=== PATIENT | female | born 1950 | race Caucasian/White ===

== ENCOUNTER → 2017-12-07 | Outpatient (CLI) | payer MEDICARE ==
--- NOTE | 2017-12-07 11:37 | KCIC ---
MR of the left knee Indication: Left knee pain. Previous lateral meniscal repair years ago. Left knee injury, bowling, 2 months ago. Pain is medial. Technique: The standard multiplanar sequences are obtained. FINDINGS: Artifact: No significant image degradation. Medial meniscus:Intact. Lateral meniscus: Mild blunting of the free margin of the lateral meniscus on a single coronal slice, compatible with a possible tear. Anterior cruciate ligament: Intact Posterior cruciate ligament: Intact Medial collateral ligament: Intact. Lateral structures: * Iliotibial band: Intact. * Lateral collateral ligament: Intact. * Biceps femoris tendon: Intact * Popliteus tendon attachment: Intact Extensive mechanism: * Patellar tendon: Intact * Quadriceps tendon: Intact * Retinacular structures: Intact Fluid: Trace joint effusion. No significant Tellez's cyst. Intra-articular bodies: None visualized Joint compartments * patellofemoral joint: Moderate chondromalacia * medial compartment: Chondromalacia, moderate to severe at the posterior weightbearing medial femoral condyle with minimal subchondral cystic change. * lateral compartment: Mildly degenerative Bones: No significant lesion or acute fracture. Soft tissue: Unremarkable Impression: 1. Mild single slice blunting of body of lateral meniscus, therefore compatible with a possible tear. If a tear, it is small. 2. Primary osteoarthritis. Electronically signed by: Adriel Schmidt MD (12/07/2017 11:34 AM) [facility]
== END | disposition home or self-care (01) ==
LOC: KCIC MRI 08:12
PROVIDERS: ATTEND Orthopaedic Surgery
DX: M17.12 Unilateral primary osteoarthritis, left knee (principal)
CPT/HCPCS: 73721

== ENCOUNTER → 2018-01-17 | Outpatient (CLI) | payer MEDICARE ==
[~2018-01-17] MED LIST: CLON0.5T11 PO; LEVO50TA PO; MULT1TAB52 PO; PNV1TABL25 PO
[2018-01-17 09:05] LABS: BASO % 1 % (0-3); EOS # 0.2 x10^3/uL (0.0-0.7); EOS % 3 % (0-3); HEMATOCRIT 43.7 % (36.0-47.0); HEMOGLOBIN 14.7 g/dL (12.0-15.5); LYMPH # 1.9 x10^3/uL (1.0-4.8); LYMPH % 39 % (24-48); MEAN CORPUSCULAR HEMOGLOBIN 29 pg (25-35); MEAN CORPUSCULAR HGB CONC 34 g/dL (31-37); MEAN CORPUSCULAR VOLUME 87 fL (79-100); MONO # 0.5 x10^3/uL (0.0-1.1); MONO % 10 % (0-9); NEUT # 2.3 x10^3uL (1.8-7.7); NEUT % 47 % (31-73); PLATELET COUNT 235 x10^3/uL (140-400); RED BLOOD COUNT 5.04 x10^6/uL (3.50-5.40); RED CELL DISTRIBUTION WIDTH 13.4 % (11.5-14.5); WHITE BLOOD COUNT 4.9 x10^3/uL (4.0-11.0)
[2018-01-17 09:11] LABS: ALBUMIN 4.1 g/dL (3.4-5.0); CALCIUM 9.6 mg/dL (8.5-10.1); CREATININE 0.9 mg/dL (0.6-1.0); GFR 62.8; POTASSIUM 3.3 mmol/L (3.5-5.1)
[2018-01-17 09:36] LABS: BILIRUBIN,URINE NEGATIVE (NEG); CLARITY,URINE CLEAR; COLOR,URINE YELLOW; NITRITE,URINE NEGATIVE (NEG); PH,URINE 5.5; PROTEIN,URINE NEGATIVE (NEG-TRACE); UROBILINOGEN,URINE 0.2 mg/dL (0.2 mg/dL)
[2018-01-17 10:02] LABS: SQUAMOUS EPITHELIAL CELL,UR FEW /LPF
[2018-01-17 10:03] LABS: BACTERIA,URINE MODERATE /HPF (0-FEW); RBC,URINE 0 /HPF (0-2)
--- NOTE | 2018-01-17 12:36 | EKG ---
[facility] [address] [place] [address] Test Date: 2018-01-17 Test Time: 12:28:55 Pat Name: GRACIE THORNTON Department: Room: Gender: F Epic Interface Analyst: : 1950 Requested By: KIKO JAMES Order Number: [id number] Reading MD: Adam Pickard MD Measurements Intervals [place] Rate: 72 P: 26 ID: 150 QRS: 20 QRSD: 86 T: 9 QT: 422 QTc: 469 Interpretive Statements SINUS RHYTHM NON-SPECIFIC ST/T CHANGES Electronically Signed On 01-17-2018 14:10:29 CDT by Adam Pickard MD
--- NOTE | 2018-01-17 15:15 | RAD ---
EXAM: Chest, 2 views. HISTORY: Knee arthroplasty. Hypertension. COMPARISON: None. FINDINGS: 2 views of the chest are obtained. There is no fracture, dislocation or subluxation. The heart is normal in size. IMPRESSION: No acute pulmonary finding. Electronically signed by: Ching Moss MD (01/17/2018 3:12 PM) [facility]
== END | disposition home or self-care (01) ==
LOC: SURGPAT 12:41
PROVIDERS: ATTEND Orthopaedic Surgery
DX: Z01.818 Encounter for other preprocedural examination (principal); I10 Essential (primary) hypertension; M17.12 Unilateral primary osteoarthritis, left knee
CPT/HCPCS: 36415; 71046; 80048; 81001; 82040; 82306; 85025; 85610; 85651; 85730; 87086; 87641; 93005

== ENCOUNTER 2018-02-08 06:21 | Inpatient (IN) | payer MEDICARE ==
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
[~2018-02-08] VITALS: Ht 168.9 cm; Wt 87.5 kg
[2018-02-08] VITALS (7 sets, daily range): BP systolic 126–180; BP diastolic 71–90
[~2018-02-08 06:21] MED LIST changes: +ACETAMINOPHEN 500 MG TABLET PO PRN; +KETOROLAC 30MG VIAL 30 MG, ROPIVacaine 0.5% PF 60 ML, EPINEPHrine 0.5 MG in IV NORMAL S... INT ART ONE; +TRANEXAMIC ACID 1,000 MG in IV NS 50ML -- 1ST BAG INJ ONE
[2018-02-08] MEDS ORDERED: PROCHLORPERAZINE 10 MG/2 ML VIAL. IV PRN ×2 (07:00→14:00)
[2018-02-08] MEDS ORDERED: IV RINGERS,LACTATED 1000ML 1,000 ML IV SCH (07:00)
[2018-02-08] MEDS ORDERED: ONDANSETRON PF 4 MG/2 ML VIAL. IV PRN (07:00)
[2018-02-08] MEDS ORDERED: LIDOCAINE 1% PF 2 ML VIAL. ID PRN (07:00)
[2018-02-08] MEDS ORDERED: fentaNYL PF VIAL 100 MCG/2 ML VIAL IV PRN ×3 (07:00→14:00)
[2018-02-08] MEDS ORDERED: TRANEXAMIC ACID 1,000 MG in IV NS 50ML -- 2ND BAG INJ ONE (08:00)
[2018-02-08] MEDS ORDERED: VANCOMYCIN 1 GM VIAL. ONE (09:27)
[2018-02-08] MEDS ORDERED: TOBRAMYCIN POWDER 1.2 GM VIAL. ONE (09:27)
[2018-02-08] MEDS ORDERED: MIDAZOLAM HCL/PF 2 MG/2 ML VIAL. ONE (10:34)
[2018-02-08] MEDS ORDERED: PHENYLEPHRINE in 0.9% NACL PF 1 MG/10 ML SYRINGE. IV ONE (10:35)
[2018-02-08] MEDS ORDERED: SEVOFLURANE > 120 MINUTES. IH ONE (10:35)
[2018-02-08] MEDS ORDERED: fentaNYL PF VIAL 250 MCG/5 ML VIAL ONE (10:35)
[2018-02-08] MEDS ORDERED: DEXAMETHASONE SOD PHOS 20 MG/5 ML VIAL. ONE (10:35)
[2018-02-08] MEDS ORDERED: PROPOFOL 20 ML IV ONE (10:35)
[2018-02-08] MEDS ORDERED: ONDANSETRON PF 4 MG/2 ML VIAL. ONE (10:35)
[2018-02-08] MEDS ORDERED: ROCURONIUM 50 MG/5 ML VIAL. ONE (11:22)
[2018-02-08] MEDS ORDERED: EPINEPHRINE INT ART ONE (12:00)
[2018-02-08] MEDS ORDERED: NORMAL SALINE INT ART ONE (12:00)
[2018-02-08] MEDS ORDERED: ROPIVACAINE 0.5% INT ART ONE (12:00)
--- NOTE | 2018-02-08 13:51 | PDOC4 ---
Operative Note Operative Note Date of Procedure: February 08, 2018 Pre-Op Diagnosis: Osteoarthritis left knee Post-Op Diagnosis: Osteoarthritis left knee Procedure: left total knee arthroplasty Surgeon: Kiko Muñoz MD Head Porter Baggage: Helen Ambrosio PA-C Anesthesia: General EBL: 125 mL Specimens Obtained: left knee bone and soft tissue Complications: none Implant Company: [employer] Drains: hemovac plus pain catheter Tourniquet time: 53 Minutes Tourniquet Pressure: 350 mm Hg Indications for Procedure: Arthritis pain unrelieved by nonoperative management Findings: Severe osteoarthritis with full thickness cartilage loss in all three compartments, especially at the trochlea. The lateral femoral condyle was deficient in shape and size, with high grade cartilage loss, and there was a discoid lateral meniscus. A lateral patellar retinacular release was required, but no medial or lateral releases required. Implants used: Size 3 left bicruciate stabilized Journey II BCS Oxinium femoral component, size 3 left Journey nonporous tibial baseplate, size 3-4 10 mm left Journey II BCS XLPE articular insert, 32 mm oval Matilda II resurfacing patellar component Procedure in Detail: The patient was identified in the preoperative holding area, and the correct left lower extremity was marked by me. The patient was taken to the operating room where the patient was anesthetized by the Department of Anesthesia. Preoperative antibiotics were given intravenously. Tranexamic acid 1 g was given intravenously for intraoperative hemostasis. A "time-out" procedure was performed. The patient was positioned supine on the operative table with a tourniquet on the upper left thigh. The left lower limb was thoroughly scrubbed , then sterile surgical prep solution was applied, and the limb was draped in sterile fashion. An impervious stockinet and adhesive drape were used such that the skin was entirely covered. An Monreal leg doe was used. The operating team wore personal exhaust-ventilated hoods. The limb exsanguinated with an Esmarch bandage, and the tourniquet was inflated. A midline skin incision was made with a scalpel using the patella and tibial tubercle as landmarks. Electrocautery was used for hemostasis. My social worker assistant used rake retractors. A medial parapatellar arthrotomy incision was used with extension into the distal quadriceps tendon. The patella was retracted laterally and Hohmann retractors were now used by my social worker assistant. Excess synovium, the menisci, and the cruciate ligaments were resected sharply. The patella was assessed and excess synovium and osteophytes around the patellar articulation were removed. The patella was measured with a caliper, cut freehand with a saw using caliper measurements, sized, and then drilled for an oval three-pegged patella component. Periarticular anesthetic injection was used in the suprapatellar pouch and distal quadriceps muscle. Whitesides's line and the transepicondylar axis were marked on the femur. An intra-medullary 5 degree cutting guide was pinned to the femur, and a distal femoral cut was made with an oscillating saw. An additional 2 mm resection was used due to the deep femoral sulcus, and deficient condyle. My social worker assistant held Hohmann retractors and an [place] retractor to protect the medial and lateral collateral ligaments, the patellar tendon, the skin and the other soft tissues. A posterior referencing guide was applied with external rotation of 4 to match Whitesides line. A 5-in-1 Journey II cutting guide was then applied and pinned to the femur. The posterior, anterior, and all chamfer cuts were made with the oscillating saw. An extramedullary guide was pinned to the tibia and rotational alignment and the planned resection thickness assessed. An external alignment rahat was used to verify the planned cut in the varus-valgus plane and regarding posterior slope referencing the tibial tubercle, the tibial shaft, the ankle joint, and the second metatarsal. The upper tibia was cut made with an oscillating saw. My social worker assistant held Hohmann retractors and a posterior cruciate ligament retractor to protect the medial and lateral collateral ligaments, the patellar tendon, the skin, the peroneal nerve and the other soft tissues. The upper tibia was sized with a trial baseplate. The posterior compartment was cleared of osteophytes and loose bodies. Periarticular anesthetic injection was used in the posterior compartment. The box cut for a posterior stabilized component was made. A preliminary reduction was performed with a trial femur, trial tibial baseplate and trial polyethylene. Soft-tissue balancing was now performed, and extension and rotation of the alignments was checked using a guide rahat in the tibial trial and a guide pin in the femur. No additional releases were required. The stability was assessed using different thicknesses of tibial articular surface to find satisfactory stability and good range of motion. The rotation of the tibial component was marked on the upper tibia. Final trial reduction was now performed verifying patella tracking and tibiofemoral stability and alignment. A lateral patellar retinacular release was used for improved patella tracking. The tibia preparation was completed with a drill, saw, and fin punch at the previously noted rotation. The final implants were verified and opened. Outer gloves were changed by the operating team. The bone cuts were washed thoroughly with the GoGuide InterPulse device and dried. I asked Ms. Ambrosio to leave the room while the cement was mixed. Two packages of Moon + Nephew Rally MV bone cement were mixed in powdered form with Vancomycin 1gm and Tobramycin 1.2 gm, and then vacuum-mixed with the monomer, and placed into a cement gun. The cut surfaces of the bone were thoroughly dried with Mackenzie-tip suction and with laparotomy sponges for cement interdigitation. The final components were cemented into place. The knee was kept at full extension while the cement hardened, and excess cement was removed. Tranexamic acid 1 g was redosed intravenously for additional intraoperative hemostasis. Ms. Ambrosio scrubbed, hooded, gowned, gloved, and returned to the case. The tourniquet was released, and electrocautery was used for hemostasis. A final periarticular anesthetic injection was used for pain relief. A final check of [id number] and stability was made, and the polyethylene implant final size was chosen. The polyethylene implant was secured to the tibial baseplate, and the knee was reduced a final time and range of motion and stability was confirmed. Thorough irrigation was used. Hemovac and pain catheter were used.The arthrotomy was closed with interrupted [id number] # 1 PDS suture. The arthrotomy incision was then run with #1 STRATAFIX Symmetric PDS Plus Knotless suture. The subcutaneous tissues were closed with #2-0 Vicryl by my social worker assistant. The skin was approximated with iris by my social worker assistant. The skin incision was then covered and reinforced with RONNI single use negative pressure wound therapy dressing Needle and sponge counts were correct. There were no apparent complications. The patient returned to the recovery room in stable condition. KIKO MUÑOZ MD Feb 08, 2018 13:51
[2018-02-08] MEDS ORDERED: 0.9 % SODIUM CHLORIDE 10 ML DISP.SYRIN. IV PRN (14:00)
[2018-02-08] MEDS ORDERED: diphenhydrAMINE HCL 25 MG CAPSULE PO PRN (14:00)
[2018-02-08] MEDS ORDERED: MORPHINE SULFATE 2 MG/ML VIAL. IV PRN (14:00)
[2018-02-08] MEDS ORDERED: MORPHINE SULFATE 10 MG/ML VIAL. IV PRN (14:00)
[2018-02-08] MEDS ORDERED: PROCHLORPERAZINE 5 MG TABLET. PO PRN (14:00)
[2018-02-08] MEDS ORDERED: METOCLOPRAMIDE HCL 10 MG/2 ML VIAL. IV PRN (14:00)
[2018-02-08] MEDS ORDERED: ZOLPIDEM 5 MG TABLET. PO PRN (14:00)
[2018-02-08] MEDS ORDERED: CALCIUM CARBONATE 500 MG TAB.CHEW PO PRN (14:00)
[2018-02-08] MEDS ORDERED: ACETAMINOPHEN 325 MG TABLET. PO PRN (14:00)
[2018-02-08] MEDS ORDERED: HYDROmorphone 2 MG TABLET PO PRN (14:00)
[2018-02-08] MEDS ORDERED: MORPHINE SULFATE 4 MG/ML VIAL. IV PRN ×2 (14:00)
[2018-02-08] MEDS ORDERED: DEXTROSE 50% 25 GM / 50ML DISP.SYRIN. IV PRN (14:00)
[2018-02-08] MEDS ORDERED: fentaNYL PF VIAL 100 MCG/2 ML VIAL ONE (14:18)
[2018-02-08] MEDS: fentaNYL PF VIAL 100 MCG/2 ML VIAL IV PRN ×2 (14:23→15:44)
--- NOTE | 2018-02-08 15:05 | RAD ---
History: Postoperative left total knee arthroplasty. Comparison: None. Findings: AP and lateral views of left knee. Left total knee arthroplasty is present. Relationship of the tibial femoral components appears anatomic. Presence of soft tissue gas, surgical drain, and surgical skin iris is compatible with recent postoperative status. Impression: Postoperative changes of left total knee arthroplasty. Electronically signed by: Adriel Marcelino MD (02/08/2018 3:02 PM) [facility]
[2018-02-08] MEDS: IV DEXTROSE 5 %-0.45 % NACL 1,000 ML IV SCH (16:06)
[2018-02-08] MEDS: FERROUS SULFATE 325 MG TABLET. PO SCH (17:18)
[2018-02-08] MEDS: traMADol 50 MG TABLET PO PRN ×2 (17:20→23:26)
[2018-02-08] MEDS: clonazePAM 0.5 MG TABLET PO SCH (20:48)
[2018-02-08] MEDS: ASPIRIN ENTERIC COATED 325 MG TABLET.DR. PO SCH (20:48)
[2018-02-09] MEDS: IV DEXTROSE 5 %-0.45 % NACL 1,000 ML IV SCH ×2 (02:00→11:03)
[2018-02-09 03:30] VITALS: BP 146/74
[2018-02-09 04:48] LABS: HEMATOCRIT 39.1 % (36.0-47.0); HEMOGLOBIN 13.3 g/dL (12.0-15.5)
[2018-02-09] MEDS ORDERED: MAGNESIUM HYDROXIDE 2,400 MG/30 ML ORAL.SUSP. PO PRN (06:00)
[2018-02-09] MEDS: LEVOTHYROXINE 50 MCG TABLET PO SCH (06:23)
[2018-02-09 06:30] VITALS: BP 131/71
[2018-02-09] MEDS: clonazePAM 0.5 MG TABLET PO SCH (07:44)
[2018-02-09] MEDS: traMADol 50 MG TABLET PO PRN ×3 (07:44→22:29)
[2018-02-09] MEDS: FERROUS SULFATE 325 MG TABLET. PO SCH ×2 (07:45→17:01)
[2018-02-09] MEDS: SENNOSIDES/DOCUSATE 8.6/50MG TABLET. PO SCH (07:45)
[2018-02-09] MEDS: MULTIVITAMIN with MINERAL TABLET. PO SCH (07:45)
[2018-02-09] MEDS: ASPIRIN ENTERIC COATED 325 MG TABLET.DR. PO SCH ×2 (07:45→20:33)
--- NOTE | 2018-02-09 09:20 | PDOC ---
PROGRESS NOTES Subjective Subjective Doing well. Pain controlled. Objective Vital Signs Vital Signs Date Time Temp Pulse Resp B/P (MAP) Pulse Ox O2 Delivery O2 Flow Rate FiO2 02/09/18 07:44 Room Air 02/09/18 06:30 98.2 66 18 131/71 (91) 18 98.2 02/08/18 23:00 2.0 Physical Exam Postop dressing dry and intact. Hemovac and pain catheter in place. Thigh and calf soft and nontender with negative Homans sign. Good AROM toes, foot, and ankle, with no sign of neurovascular injury nor compartment syndrome. Labs Laboratory Tests Test 02/09/18 03:50 Hemoglobin 13.3 g/dL (12.0-15.5) Hematocrit 39.1 % (36.0-47.0) Mean Corpuscular Hemoglobin Concent 34 g/dL (31-37) Laboratory Tests Test 02/09/18 03:50 Hemoglobin 13.3 g/dL (12.0-15.5) Hematocrit 39.1 % (36.0-47.0) Mean Corpuscular Hemoglobin Concent 34 g/dL (31-37) Imaging Postoperative knee x-rays report reviewed, images independently reviewed. Satisfactory TKA alignment with no apparent complications. Assessment Assessment POD #1 TKA Plan Plan of Care Continue POC including PT and DVT prophylaxis. KIERSTEN RENDON Feb 09, 2018 09:19
[2018-02-09] MEDS ORDERED: BISACODYL 10 MG SUPP.RECT. PR PRN (16:00)
[2018-02-09 18:28] VITALS: BP 138/66
[2018-02-09] MEDS ORDERED: clonazePAM 0.5 MG TABLET PO PRN (18:30)
[2018-02-10] MEDS: traMADol 50 MG TABLET PO PRN ×3 (02:01→17:45)
[2018-02-10 05:34] LABS: HEMATOCRIT 33.8 % (36.0-47.0); HEMOGLOBIN 11.5 g/dL (12.0-15.5)
[2018-02-10 06:00] VITALS: BP 116/61
[2018-02-10] MEDS: LEVOTHYROXINE 50 MCG TABLET PO SCH (06:01)
[2018-02-10] MEDS: ASPIRIN ENTERIC COATED 325 MG TABLET.DR. PO SCH ×2 (08:09→20:57)
[2018-02-10] MEDS: MULTIVITAMIN with MINERAL TABLET. PO SCH (08:10)
[2018-02-10] MEDS: SENNOSIDES/DOCUSATE 8.6/50MG TABLET. PO SCH (08:10)
[2018-02-10] MEDS: FERROUS SULFATE 325 MG TABLET. PO SCH ×2 (08:10→17:44)
--- NOTE | 2018-02-10 12:55 | PDOC ---
PROGRESS NOTES Subjective Subjective Pain controlled Objective Vital Signs Vital Signs Date Time Temp Pulse Resp B/P (MAP) Pulse Ox O2 Delivery O2 Flow Rate FiO2 02/10/18 09:10 Room Air 02/10/18 06:00 97.7 73 18 116/61 (79) 97 97.7 02/08/18 23:00 2.0 Physical Exam Knee Prevena dressing with spotty drainage only, and slight bleeding from hemovac site. Calf and thigh soft and NT. Good AROM toes, foot and ankle with negative Homans and no sign of neurovascular injury nor compartment syndrome. Pain catheter and hemovac have been removed. Not yet safely walking with walker Labs Laboratory Tests Test 02/09/18 03:50 02/10/18 04:45 Hemoglobin 13.3 g/dL (12.0-15.5) 11.5 g/dL (12.0-15.5) Hematocrit 39.1 % (36.0-47.0) 33.8 % (36.0-47.0) Mean Corpuscular Hemoglobin Concent 34 g/dL (31-37) 34 g/dL (31-37) Laboratory Tests Test 02/10/18 04:45 Hemoglobin 11.5 g/dL (12.0-15.5) Hematocrit 33.8 % (36.0-47.0) Mean Corpuscular Hemoglobin Concent 34 g/dL (31-37) Imaging Postoperative knee x-rays. Report reviewed, images independently reviewed. Satisfactory TKA alignment with no apparent complications. Assessment Assessment POD 2 after TKA Plan Plan of Care Continue PT and DVT prophylaxis. Discharge planning for tomorrow KIKO JAMES MD Feb 10, 2018 12:55
[2018-02-10 18:02] VITALS: BP 137/75
[2018-02-11 04:41] LABS: HEMOGLOBIN 10.8 g/dL (12.0-15.5)
[2018-02-11] MEDS: LEVOTHYROXINE 50 MCG TABLET PO SCH (05:40)
[2018-02-11 05:48] VITALS: BP 114/69
[2018-02-11] MEDS: traMADol 50 MG TABLET PO PRN (05:50)
--- NOTE | 2018-02-11 08:11 | PATHOLOGY ---
[facility] Accession Number: [id number] . 01 Material submitted: . LEFT KNEE BONE AND TISSUE . 01 Clinician provided ICD-10: M17.12 . 01 Clinical history: . Left knee osteoarthritis pain . 02 Diagnosis: Segments of bone and soft tissue, left total knee arthroplasty: - Degenerative arthritis. (JPM:sabas; 02/10/2018) QMS/02/10/2018 . 02 Electronically signed: . Scott Dinh MD, Pathologist NPI- [id number] . 01 Gross description: . The specimen is received in formalin, labeled "Partida, Gloria, left knee bone and tissue", multiple segments of alvarez bone and ross-white fibrous tissue consisting of recognizable portion of tibial plateau, patella and meniscus measuring 11.0 x 7.8 x 2.0 cm in aggregate. The articular cartilage is irregular and pitted. Peripheral osteophytes are present. County Attorney tissue is submitted in A1 after decalcification. ([facility]; 02/08/2018) SHS/SHS . 02 Pathologist provided ICD-10: M17.12 . 02 CPT . [id number], [id number] Specimen Comment: A courtesy copy of this report has been sent to Specimen Comment: [phone], . Specimen Comment: Report sent to / DR GELLER Specimen Comment: A duplicate report has been generated due to demographic updates. Performed at: 01 [facility] [address], [place] [id number] MD Orion Mccarthy MD Phone: [phone] Performed at: 02 [facility] [address] [place], [place] [id number] MD Scott Dinh MD Phone: [phone]
[2018-02-11] MEDS: FERROUS SULFATE 325 MG TABLET. PO SCH (09:05)
[2018-02-11] MEDS: SENNOSIDES/DOCUSATE 8.6/50MG TABLET. PO SCH (09:05)
[2018-02-11] MEDS: ASPIRIN ENTERIC COATED 325 MG TABLET.DR. PO SCH (09:05)
[2018-02-11] MEDS: MULTIVITAMIN with MINERAL TABLET. PO SCH (09:05)
--- NOTE | 2018-02-11 09:37 | PDOC ---
PROGRESS NOTES Subjective Subjective Doing well, pain controlled. Objective Vital Signs Vital Signs Date Time Temp Pulse Resp B/P (MAP) Pulse Ox O2 Delivery O2 Flow Rate FiO2 02/11/18 06:45 18 Room Air 02/11/18 05:50 98 02/11/18 05:48 98.2 82 114/69 (84) 98.2 02/08/18 23:00 2.0 Physical Exam RONNI dressing intact with spotty drainage only. Calf and thigh soft and NT. Good AROM toes, foot and ankle with negative Homans sign and no sign of neurovascular injury nor compartment syndrome. Labs Laboratory Tests Test 02/10/18 04:45 02/11/18 04:00 Hemoglobin 11.5 g/dL (12.0-15.5) 10.8 g/dL (12.0-15.5) Hematocrit 33.8 % (36.0-47.0) 31.0 % (36.0-47.0) Mean Corpuscular Hemoglobin Concent 34 g/dL (31-37) 35 g/dL (31-37) Laboratory Tests Test 02/11/18 04:00 Hemoglobin 10.8 g/dL (12.0-15.5) Hematocrit 31.0 % (36.0-47.0) Mean Corpuscular Hemoglobin Concent 35 g/dL (31-37) Assessment Assessment POD #3 TKA Plan Plan of Care Continue PT and DVT prophylaxis. Discharge this afternoon after therapy. KIERSTEN RENDON Feb 11, 2018 09:37
--- NOTE | 2018-02-11 09:45 | PDOC3 ---
Discharge Summary Visit Information Date of Admission: Feb 08, 2018 Date of Discharge: Feb 11, 2018 Admitting Diagnosis: left knee osteoarthritis pain Brief Hospital Course Allergies Allergies Coded Allergies Type Severity Reaction Last Updated Verified Sulfa (Sulfonamide Antibiotics) Allergy Severe Anaphylaxis 01/14/18 Yes shellfish derived Adverse Reaction Severe Anaphylaxis 01/14/18 Yes adhesive Adverse Reaction Intermediate Rash 01/14/18 Yes aspartame Adverse Reaction Intermediate 01/14/18 Yes hydrocodone Adverse Reaction Intermediate Rash 01/14/18 Yes kevin Adverse Reaction Intermediate Anaphylaxis 01/14/18 Yes oxycodone Adverse Reaction Intermediate Rash 01/14/18 Yes Vital Signs Vital Signs Date Time Temp Pulse Resp B/P (MAP) Pulse Ox O2 Delivery O2 Flow Rate FiO2 02/11/18 06:45 18 Room Air 02/11/18 05:50 98 02/11/18 05:48 98.2 82 114/69 (84) 98.2 Lab Results Laboratory Tests Test 02/10/18 04:45 02/11/18 04:00 Hemoglobin 11.5 g/dL (12.0-15.5) 10.8 g/dL (12.0-15.5) Hematocrit 33.8 % (36.0-47.0) 31.0 % (36.0-47.0) Mean Corpuscular Hemoglobin Concent 34 g/dL (31-37) 35 g/dL (31-37) Laboratory Tests Test 02/11/18 04:00 Hemoglobin 10.8 g/dL (12.0-15.5) Hematocrit 31.0 % (36.0-47.0) Mean Corpuscular Hemoglobin Concent 35 g/dL (31-37) Brief Hospital Course 67 year old who presented with knee osteoarthritis, for elective total knee arthroplasty. The patient underwent total knee arthroplasty under general anesthesia the day of admission. Perioperative antibiotics and DVT prophylaxis were used. Postoperatively physical therapy and case management were consulted. The patient progressed and is stable for discharge. Discharge Information Condition at Discharge: Stable Follow Up: Weeks (2) Disposition/Orders: D/C to Home Scheduled Clonazepam (Clonazepam), 0.5 MG PO BID, (Reported) Levothyroxine Sodium (Synthroid), 50 MCG PO DAILYAC, (Reported) Multivitamin (Multivitamins), 1 EACH PO DAILY, (Reported) Pnv Cmb#95/Ferrous Fumarate/Fa ( Tablet), 1 EACH PO DAILY, (Reported) Patient Instructions Patient Instructions Patient Instructions Continue to WBAT with walker. Keep dressing dry and intact. F/U with [facility] in 10-14 days. Call for appointment. Physical therapy for TKA Continue DVT prophylaxis with aspirin 325mg twice daily. KIERSTEN RENDON Feb 11, 2018 09:45
[2018-02-11] MEDS ORDERED: TRAM50TA PO ×2 (11:02→11:04)
[2018-02-11] MEDS ORDERED: FERR325T14 PO (11:05)
[2018-02-11 15:02] VITALS: BP 124/61
== END 2018-02-11 15:10 | disposition home health service (06) | DRG 470 ==
LOC: OPSVCIP 06:21 → 4 SOUTHEST 15:40
PROVIDERS: ADMIT Orthopaedic Surgery; ATTEND Orthopaedic Surgery
PROC: 0SRD069 Replacement of Left Knee Joint with Oxidized Zirconium on Polyethylene Synthetic Substitute, Cemented, Open Approach (ICD-10-PCS; principal; 2018-02-08 11:15)
DX: M17.12 Unilateral primary osteoarthritis, left knee (principal); E03.9 Hypothyroidism, unspecified; F43.10 Post-traumatic stress disorder, unspecified; Z87.442 Personal history of urinary calculi; Z90.710 Acquired absence of both cervix and uterus; Z90.3 Acquired absence of stomach [part of]; Z88.2 Allergy status to sulfonamides; Z88.8 Allergy status to other drugs, medicaments and biological substances; Z88.6 Allergy status to analgesic agent; Z91.013 Allergy to seafood; Z91.018 Allergy to other foods; Z79.899 Other long term (current) drug therapy; Z82.0 Family history of epilepsy and other diseases of the nervous system; Z82.3 Family history of stroke; Z83.3 Family history of diabetes mellitus
CPT/HCPCS: 36415; 73560; 85014; 85018; 86850; 86900; 86901; 88305; 88311; 90471; 90756; A7015; C1713; J0171; J0690; J1100; J1885; J2250; J2370; J2405; J2704; J2795; J3010; J3260; J3370; J3490; J7030; J7120; 97116; 97150; 97530; 97535; A4461; C1769; Q2035

== ENCOUNTER → 2018-05-09 | Outpatient (CLI) | payer MEDICARE ==
[~2018-05-09] MED LIST changes: -ACETAMINOPHEN 500 MG TABLET PO PRN; +CHOL2000 PO; +FERR325T14 PO; +HYDR25TA PO; -KETOROLAC 30MG VIAL 30 MG, ROPIVacaine 0.5% PF 60 ML, EPINEPHrine 0.5 MG in IV NORMAL S... INT ART ONE; +LOSA1TAB25 PO; +MELO7.5T29 PO; +TRAM50TA PO; -TRANEXAMIC ACID 1,000 MG in IV NS 50ML -- 1ST BAG INJ ONE
[2018-05-09 13:58] LABS: ALBUMIN 3.8 g/dL (3.4-5.0); CALCIUM 9.1 mg/dL (8.5-10.1); CREATININE 0.8 mg/dL (0.6-1.0); POTASSIUM 3.6 mmol/L (3.5-5.1)
[2018-05-09 13:59] LABS: BASO % 1 % (0-3); EOS # 0.1 x10^3/uL (0.0-0.7); EOS % 3 % (0-3); HEMATOCRIT 37.5 % (36.0-47.0); HEMOGLOBIN 12.8 g/dL (12.0-15.5); LYMPH # 1.3 x10^3/uL (1.0-4.8); LYMPH % 33 % (24-48); MEAN CORPUSCULAR HEMOGLOBIN 28 pg (25-35); MEAN CORPUSCULAR HGB CONC 34 g/dL (31-37); MEAN CORPUSCULAR VOLUME 83 fL (79-100); MONO # 0.3 x10^3/uL (0.0-1.1); MONO % 8 % (0-9); NEUT # 2.2 x10^3uL (1.8-7.7); NEUT % 55 % (31-73); PLATELET COUNT 209 x10^3/uL (140-400); RED BLOOD COUNT 4.51 x10^6/uL (3.50-5.40); RED CELL DISTRIBUTION WIDTH 13.9 % (11.5-14.5)
[2018-05-09 14:10] LABS: BILIRUBIN,URINE NEGATIVE (NEG); CLARITY,URINE CLEAR; COLOR,URINE AMBER; NITRITE,URINE NEGATIVE (NEG); PROTEIN,URINE NEGATIVE (NEG-TRACE); UROBILINOGEN,URINE 0.2 mg/dL (0.2 mg/dL)
[2018-05-09 14:21] LABS: SQUAMOUS EPITHELIAL CELL,UR MOD /LPF
[2018-05-09 14:22] LABS: BACTERIA,URINE FEW /HPF (0-FEW); RBC,URINE 0 /HPF (0-2)
[2018-05-09 14:23] LABS: AMORPHOUS SEDIMENT,UR PRESENT /HPF; WBC,URINE OCC /HPF (0-4)
[2018-05-09 14:24] LABS: HYALINE CASTS, URINE FEW /HPF
== END | disposition home or self-care (01) ==
LOC: SURGPAT 09:31
PROVIDERS: ATTEND Orthopaedic Surgery
DX: Z01.818 Encounter for other preprocedural examination (principal); M17.11 Unilateral primary osteoarthritis, right knee; E03.9 Hypothyroidism, unspecified; Z87.442 Personal history of urinary calculi; Z88.8 Allergy status to other drugs, medicaments and biological substances; Z79.899 Other long term (current) drug therapy; Z82.3 Family history of stroke; Z90.710 Acquired absence of both cervix and uterus; Z90.722 Acquired absence of ovaries, bilateral; Z82.0 Family history of epilepsy and other diseases of the nervous system; Z88.2 Allergy status to sulfonamides
CPT/HCPCS: 36415; 80048; 81001; 82040; 85025; 85610; 85651; 85730; 87086; 87641

== ENCOUNTER 2021-03-31 15:06 | Inpatient (IN) | payer MEDICARE ==
[~2021-03-31] VITALS: Ht 170.2 cm; Wt 69.6 kg
[~2021-03-31 15:06] MED LIST changes: +CLON-77 PO; -CLON0.5T11 PO; +MULT-445 PO; -MULT1TAB52 PO
[2021-03-31 17:13] LABS: BASO % 1 % (0-3); EOS # 0.2 x10^3/uL (0.0-0.7); EOS % 5 % (0-3); HEMATOCRIT 35.8 % (36.0-47.0); LYMPH # 0.9 x10^3/uL (1.0-4.8); LYMPH % 20 % (24-48); MEAN CORPUSCULAR HEMOGLOBIN 27 pg (25-35); MEAN CORPUSCULAR HGB CONC 34 g/dL (31-37); MEAN CORPUSCULAR VOLUME 81 fL (79-100); MONO # 0.4 x10^3/uL (0.0-1.1); MONO % 8 % (0-9); NEUT # 2.9 x10^3/uL (1.8-7.7); NEUT % 66 % (31-73); PLATELET COUNT 261 x10^3/uL (140-400); RED BLOOD COUNT 4.45 x10^6/uL (3.50-5.40); RED CELL DISTRIBUTION WIDTH 15.5 % (11.5-14.5); WHITE BLOOD COUNT 4.4 x10^3/uL (4.0-11.0)
[2021-03-31 17:23] LABS: PROTHROMBIN TIME PATIENT 18.7 SEC (11.7-14.0)
[2021-03-31 17:42] LABS: CALCIUM 11.9 mg/dL (8.5-10.1); CREATININE 3.3 mg/dL (0.6-1.0); GFR 13.9; POTASSIUM 4.2 mmol/L (3.5-5.1)
[2021-03-31 17:48] LABS: ALBUMIN 2.2 g/dL (3.4-5.0); ALBUMIN/GLOBULIN RATIO 0.6 (1.0-1.7); MAGNESIUM 2.1 mg/dL (1.8-2.4); TOTAL BILIRUBIN 0.5 mg/dL (0.2-1.0); TOTAL PROTEIN 5.7 g/dL (6.4-8.2)
--- NOTE | 2021-03-31 18:09 | PHYS DOC ---
Past Medical History Past Surgical History: Cholecystectomy, Knee Replacement (NAEEM GRAJEDA ELECTRIC SWITCH REPAIRER) Smoking Status: Never Smoker (NAEEM GRAJEDA ELECTRIC SWITCH REPAIRER) General Adult EDM: Chief Complaint: ABNORMAL LABS HPI: HPI: Patient is a 70 year old female presenting to the ED today to be evaluated for hypoxia and a mass in the lung. Patient states she has had cough and shortness of breath as well as upper back pain, symptoms have been going on since January. She states she has been seen by the PCP and they did a CT of her chest, CT was noted for 5.7 cm in the left upper lobe concerning for bronchogenic carcinoma. She was hypoxic at the doctor's office and had elevated creatinine and was sent to the Ed. Denies history of smoking. Patient also states that last night she fell hitting her head on the ground. Denies any loss of consciousness. She states she now has low back pain from the fall. (NAEEM GRAJEDA ELECTRIC SWITCH REPAIRER) Review of Systems: Review of Systems: Constitutional: Denies fever or chills. [] Eyes: Denies change in visual acuity. [] HENT: Denies nasal congestion or sore throat. [] Respiratory: reports shortness of breath and cough Cardiovascular: Denies chest pain or edema. [] GI: Denies abdominal pain, nausea, vomiting, bloody stools or diarrhea. [] : Reports elevated creatinine. Denies dysuria. [] Musculoskeletal: Reports low back pain Integument: Denies rash. [] Neurologic: Reports falling and hitting her head on the ground, denies focal weakness or sensory changes. [] Psychiatric: Denies depression or anxiety. [] (NAEEM GRAJEDA ELECTRIC SWITCH REPAIRER) Heart Score: C/O Chest Pain: N/A Risk Factors: Risk Factors: DM, Current or recent (<one month) smoker, HTN, HLP, family history of CAD, obesity. Risk Scores: Score 0 - 3: 2.5% MACE over next 6 weeks - Discharge Home Score 4 - 6: 20.3% MACE over next 6 weeks - Admit for Clinical Observation Score 7 - 10: 72.7% MACE over next 6 weeks - Early Invasive Strategies (NAEEM GRAJEDA ELECTRIC SWITCH REPAIRER) Allergies: Allergies: Allergies Coded Allergies Type Severity Reaction Last Updated Verified Sulfa (Sulfonamide Antibiotics) Allergy Severe Anaphylaxis 01/14/18 Yes acetaminophen Allergy Intermediate Rash 1/21/19 Yes amoxicillin Allergy Intermediate Rash 05/09/18 Yes buspirone Allergy Intermediate Rash 05/09/18 Yes carbamazepine Allergy Intermediate Rash 05/09/18 Yes clavulanic acid Allergy Intermediate Rash 05/09/18 Yes lithium Allergy Intermediate Rash 05/09/18 Yes nickel Allergy Unknown Rash 05/09/18 Yes shellfish derived Adverse Reaction Severe Anaphylaxis 01/14/18 Yes adhesive Adverse Reaction Intermediate Rash 01/14/18 Yes alprazolam Adverse Reaction Intermediate 05/25/18 Yes aspartame Adverse Reaction Intermediate 01/14/18 Yes hydrocodone Adverse Reaction Intermediate Rash 01/14/18 Yes kevin Adverse Reaction Intermediate Anaphylaxis 01/14/18 Yes oxycodone Adverse Reaction Intermediate Rash 01/14/18 Yes risperidone Adverse Reaction Intermediate 05/25/18 Yes trazodone Adverse Reaction Intermediate 05/25/18 Yes (NAEEM GRAJEDA ELECTRIC SWITCH REPAIRER) Physical Exam: PE: Constitutional: Well developed, well nourished, no acute distress, non-toxic appearance. [] HENT: Normocephalic, atraumatic, bilateral external ears normal, oropharynx moist, no oral exudates, nose normal. [] Eyes: PERRLA, EOMI, conjunctiva normal, no discharge. [] Neck: Normal range of motion, no tenderness, supple, no stridor. [] Cardiovascular:Heart rate regular rhythm Lungs & Thorax: diminished breath sounds, short of breath during conversations Abdomen: Bowel sounds normal, soft, no tenderness, no masses, no pulsatile masses. [] Skin: Warm, dry, no erythema, no rash. [] Back: No tenderness, no CVA tenderness. [] Extremities: No tenderness, no cyanosis, no clubbing, ROM intact, no edema. [] Neurologic: Alert and oriented X 3, normal motor function, normal sensory function, no focal deficits noted. Cranial nerves II through XII intact Psychologic: Affect normal, judgement normal, mood normal. [] (NAEEM GRAJEDA ELECTRIC SWITCH REPAIRER) Current Patient Data: Labs: Laboratory Tests Test 03/31/21 16:38 White Blood Count 4.4 x10^3/uL (4.0-11.0) Red Blood Count 4.45 x10^6/uL (3.50-5.40) Hemoglobin 12.0 g/dL (12.0-15.5) Hematocrit 35.8 % (36.0-47.0) L Mean Corpuscular Volume 81 fL (79-100) Mean Corpuscular Hemoglobin 27 pg (25-35) Mean Corpuscular Hemoglobin Concent 34 g/dL (31-37) Red Cell Distribution Width 15.5 % (11.5-14.5) H Platelet Count 261 x10^3/uL (140-400) Neutrophils (%) (Auto) 66 % (31-73) Lymphocytes (%) (Auto) 20 % (24-48) L Monocytes (%) (Auto) 8 % (0-9) Eosinophils (%) (Auto) 5 % (0-3) H Basophils (%) (Auto) 1 % (0-3) Neutrophils # (Auto) 2.9 x10^3/uL (1.8-7.7) Lymphocytes # (Auto) 0.9 x10^3/uL (1.0-4.8) L Monocytes # (Auto) 0.4 x10^3/uL (0.0-1.1) Eosinophils # (Auto) 0.2 x10^3/uL (0.0-0.7) Basophils # (Auto) 0.0 x10^3/uL (0.0-0.2) Platelet Estimate Pending Prothrombin Time 18.7 SEC (11.7-14.0) H Prothrombin Time INR 1.6 (0.8-1.1) H Activated Partial Thromboplast Time 55 SEC (24-38) H Sodium Level 132 mmol/L (136-145) L Potassium Level 4.2 mmol/L (3.5-5.1) Chloride Level 96 mmol/L (98-107) L Carbon Dioxide Level 28 mmol/L (21-32) Anion Gap 8 (6-14) Blood Urea Nitrogen 80 mg/dL (7-20) H Creatinine 3.3 mg/dL (0.6-1.0) H Estimated GFR (Cockcroft-Gault) 13.9 BUN/Creatinine Ratio 24 (6-20) H Glucose Level 84 mg/dL (70-99) Calcium Level 11.9 mg/dL (8.5-10.1) H Magnesium Level 2.1 mg/dL (1.8-2.4) Total Bilirubin 0.5 mg/dL (0.2-1.0) Aspartate Amino Transferase (AST) 46 U/L (15-37) H Alanine Aminotransferase (ALT) 27 U/L (14-59) Alkaline Phosphatase 113 U/L (46-116) Troponin I High Sensitivity 7 ng/L (4-50) Total Protein 5.7 g/dL (6.4-8.2) L Albumin 2.2 g/dL (3.4-5.0) L Albumin/Globulin Ratio 0.6 (1.0-1.7) L Laboratory Tests 03/31/21 16:38 Laboratory Tests 03/31/21 16:38 Vital Signs: Vital Signs Date Time Temp Pulse Resp B/P (MAP) Pulse Ox O2 Delivery O2 Flow Rate FiO2 03/31/21 16:15 98.4 74 19 137/61 (86) 100 Nasal Cannula 2.0 98.4 (NAEEM GRAJEDA ELECTRIC SWITCH REPAIRER) EKG: EK interpreted by Dr. Clayton sinus rhythm heart rate 75 no STEMI [] [address] Clayton sinus rhythm heart rate 61 no STEMI [] (NAEEM GRAJEDA ELECTRIC SWITCH REPAIRER) Radiology/Procedures: Radiology/Procedures: [] (NAEEM GRAJEDA ELECTRIC SWITCH REPAIRER) Course & Med Decision Making: Course & Med Decision Making Pertinent Labs and Imaging studies reviewed. (See chart for details) This is a 70-year-old female patient presented to the ED today to be evaluated for hypoxia and elevated creatinine. See HPI. Patient presented to the ED with a CT showing she has a left upper lobe mass concerning for bronchogenic carcinoma. CT was done at [facility] After patient was in the ED for a while I talked to her, she states she actually fell last night and hit her head on the ground. She is complaining of posteri or head pain and low back pain. Vitals on arrival to the ED temperature 98.6, heart rate 74, respiration 19 on 2 L of oxygen satting at 100%. Blood pressure 137/61. CBC with hgb of 12.8, HCT of 35.8. CMP with creatinine of 3.3, BUN of 80. Patient denies any previous history of kidney failure or renal insufficiency. Potassium is 4.2. Calcium 11.9. Spoke with Dr. Francis who accepted patient for admission Spoke with -political science research assistant, requested renal ultrasound, IV fluids, BVI. Consult placed for (NAEEM GRAJEDA ELECTRIC SWITCH REPAIRER) Re Disclaimer: Re Disclaimer: This electronic medical record was generated, in whole or in part, using a voice recognition dictation system. (NAEEM GRAJEDA ELECTRIC SWITCH REPAIRER) Departure Departure Impression: Primary Impression: Bronchogenic carcinoma Additional Impressions: Shortness of breath Cough Fall from standing Qualified Codes: W19.XXXA - Unspecified fall, initial encounter Low back pain Qualified Codes: M54.50 - Low back pain, unspecified Acute renal failure Qualified Codes: N17.9 - Acute kidney failure, unspecified Disposition: ADMITTED INPATIENT Condition: STABLE Referrals: COOKIE GELLER (PCP) Attending Signature Attending Signature I have reviewed the PA/DIRECTOR RETIREMENT's note and plan of care. I was available for co nsultation as needed during the patient's visit in the emergency department. I agree with the clinical impression, plan, and disposition. (BRYANNA CLAYTON DO) NAEEM GRAJEDA APRN Mar 31, 2021 18:09 BRYANNA CLAYTON DO Apr 05, 2021 23:45
[2021-03-31 18:33] LABS: % BANDS 6 % (0-9); % EOS 3 % (0-5); % LYMPHS 11 % (24-48); % MONOS 6 % (0-10); % SEGS 74 % (35-66); PLT ESTIMATE ADEQUATE (ADEQUATE); TOXIC GRANULATION SLIGHT
[2021-03-31] MEDS ORDERED: ONDANSETRON PF 4 MG/2 ML VIAL. IVP PRN (19:30)
[2021-03-31] MEDS ORDERED: IV NORMAL SALINE 1000ML BAG 1,000 ML IV ONE ×3 (19:30)
--- NOTE | 2021-03-31 19:48 | RAD ---
CT Head W/O Contrast: History: Reason: fall : Comparison: none Axial images were obtained without contrast. The ross and white matter appears normal and symmetrical for the patients age. There is no mass effe ct, extraaxial fluid collections or hydrocephalus. There is no gross bleed. There is no focal loss of ross-white matter distinction to suggest acute ischemia, i.e. stroke. Impression: No acute findings. End Impression CT C-Spine without contrast: Clinical History: Reason: fall / Spl. Instructions: / History: Technique: Axial helical images of the cervical spine were obtained without contrast, axial coronal and sagittal reconstruction was performed. Findings: There is no loss of vertebral body stature. There is no prevertebral soft tissue swelling. The vert ebral bodies are well aligned. The C1-C2 relationship is normal. The visualized osseous structures a ppear normal. Evaluation of the central canal is limited without contrast. There is multiple posterio r disc bulges resulting in flattening of the thecal sac. There does not appear to be gross flattening of the cervical cord. There is moderate narrowing of multiple neuroforamen. Impression: No acute findings. Clinical correlation suggested. PQRS Compliance Statement: One or more of the following individualized dose reduction techniques were utilized for this examinat ion: 1. Automated exposure control 2. Adjustment of the mA and/or kV according to patient size 3. Use of iterative reconstruction technique Electronically signed by: Sanchez Manzano III, MD (03/31/2021 7:46 PM) [facility]
[2021-03-31] MEDS ORDERED: hydrOXYzine 25 MG TABLET PO PRN (20:45)
[2021-03-31] MEDS ORDERED: traMADol 50 MG TABLET PO PRN (20:45)
--- NOTE | 2021-03-31 21:43 | PDOC1 ---
History and Physical Date of Admission Date of Admission DATE: 03/31/21 TIME: 21:43 Identification/Chief Complaint Chief Complaint short of breath, weak, new hypoxia History of Present Illness History of Present Illness Patient is a 70 year old female presenting to the ED today to be evaluated for hypoxia and a mass in the lung. Patient states she has had cough and shortness of breath as well as upper back pain, symptoms have been going on since January. She states she has been seen by the PCP and they did a CT of her chest, CT was noted for 5.7 cm in the left upper lobe concerning for bronchogenic carcinoma. She was hypoxic at the doctor's office and had elevated creatinine and was sent to the Ed. Denies history of smoking. Patient also states that last night she fell hitting her head on the ground. Denies any loss of consciousness. She states she now has low back pain from the fall. Past Medical History GI: Other Psych: Other Renal/: Other Endocrine: Hypothyroidism Past Surgical History Past Surgical History: Cholecystectomy, Tonsillectomy, Hysterectomy, Other Family History Family History: Alzheimer's Disease, Cancer, Diabetes, Stroke Social History Smoke: No ALCOHOL: none Drugs: None Current Problem List Problem List Problems Medical Problems: (1) Acute renal failure Status: Acute (2) Bronchogenic carcinoma Status: Acute (3) Cough Status: Acute (4) Fall from standing Status: Acute (5) Low back pain Status: Acute (6) Shortness of breath Status: Acute Current Medications Current Medications Current Medications Sodium Chloride 1,000 ml @ 1,000 mls/hr 1X ONCE IV ; Start 03/31/21 at 19:30; Stop 03/31/21 at 20:29; Status DC Sodium Chloride 1,000 ml @ 1,000 mls/hr 1X ONCE IV ; Start 03/31/21 at 19:30; Stop 03/31/21 at 20:29; Status DC Ondansetron HCl (Zofran) 4 mg PRN Q8HRS PRN IVP NAUSEA/VOMITING; Start 03/31/21 at 19:30; Stop 04/01/21 at 19:29 Sodium Chloride 1,000 ml @ 125 mls/hr 1X ONCE IV ; Start 03/31/21 at 19:30; Stop 04/01/21 at 03:29 Levothyroxine Sodium (Synthroid) 50 mcg DAILYAC PO ; Start 04/01/21 at 07:30 Tramadol HCl (Ultram) 50 mg PRN Q4HRS PRN PO PAIN; Start 03/31/21 at 20:45 Hydroxyzine HCl (Atarax) 25 mg PRN Q6HRS PRN PO ITCHING; Start 03/31/21 at 20:45 Active Scripts Active Meloxicam 7.5 Mg Tablet 7.5 Mg PO BID 30 Days Tramadol Hcl 50 Mg Tablet 50 Mg PO PRN Q4HRS PRN MDD 600 mg 14 Days Tramadol 50 mg Take one or two tablets every four hours, as needed for pain. Reported Losartan-Hctz 100-12.5 Mg Tab (Losartan/Hydrochlorothiazide) 1 Each Tablet 1 Each PO DAILY Vitamin D (Cholecalciferol (Vitamin D3)) 2,000 Unit Capsule 5,000 Unit PO DAILY Hydroxyzine Hcl 25 Mg Tablet 25 Mg PO QID Ferrous Sulfate 325 Mg Tablet 1 Tab PO DAILY 30 Days Tramadol Hcl 50 Mg Tablet 1-2 Tab PO Q4-6HRS PRN Tablet (Pnv Cmb#95/Ferrous Fumarate/Fa) 1 Each Tablet 1 Each PO DAILY Multivitamins (Multivitamin) 1 Each Tablet 1 Each PO DAILY Synthroid (Levothyroxine Sodium) 50 Mcg Tablet 50 Mcg PO DAILYAC Allergies Allergies: Coded Allergies: Sulfa (Sulfonamide Antibiotics) (Verified Allergy, Severe, Anaphylaxis, 01/14/18) acetaminophen (Verified Allergy, Intermediate, Rash, 05/09/18) amoxicillin (Verified Allergy, Intermediate, Rash, 05/09/18) buspirone (Verified Allergy, Intermediate, Rash, 05/09/18) carbamazepine (Verified Allergy, Intermediate, Rash, 05/09/18) clavulanic acid (Verified Allergy, Intermediate, Rash, 05/09/18) lithium (Verified Allergy, Intermediate, Rash, 05/09/18) nickel (Verified Allergy, Unknown, Rash, 05/09/18) "skin discoloration" shellfish derived (Verified Adverse Reaction, Severe, Anaphylaxis, 01/14/18) adhesive (Verified Adverse Reaction, Intermediate, Rash, 01/14/18) "OP-SITE" alprazolam (Verified Adverse Reaction, Intermediate, 05/25/18) "run into quiroz" aspartame (Verified Adverse Reaction, Intermediate, 01/14/18) MOUTH BLISTERS/ULCERS hydrocodone (Verified Adverse Reaction, Intermediate, Rash, 01/14/18) kevin (Verified Adverse Reaction, Intermediate, Anaphylaxis, 01/14/18) oxycodone (Verified Adverse Reaction, Intermediate, Rash, 01/14/18) risperidone (Verified Adverse Reaction, Intermediate, 05/25/18) migraines trazodone (Verified Adverse Reaction, Intermediate, 05/25/18) migraines ROS General: YES: Chills, Fatigue PSYCHOLOGICAL ROS: No: Anxiety, Behavioral Disorder, Concentration difficultie, Decreased libido, Depression, Disorientation, Hallucinations, Hostility, Irritablity, Memory difficulties, Mood Swings, Obsessive thoughts, Physical abuse, Sexual abuse, Sleep disturbances, Suicidal ideation, Other Eyes: No Blurry vision, No Decreased vision, No Double vision, No Dry eyes, No Excessive tearing, No Eye Pain, No Itchy Eyes, No Loss of vision, No Photophobia, No Scotomata, No Uses contacts, No Uses glasses, No Other HEENT: No: Heacaches, Visual Changes, Hearing change, Nasal congestion, Nasal discharge, Oral lesions, Sinus pain, Sore Throat, Epistaxis, Sneezing, Snoring, Tinnitus, Vertigo, Vocal changes, Other Respiratory: YES: Cough; No: Hemoptysis, Orthopnea, Pleuritic Pain, Shortness of breath, SOB with excertion, Sputum Changes, Stridor, Tachypnea, Wheezing, Other Cardiovascular: No Chest Pain, No Palpitations, No Orthopnea, No Paroxysmal Noc. Dyspnea, No Edema, No Lt Headedness, No Other Gastrointestinal: No Nausea, No Vomiting, No Abdominal Pain, No Diarrhea, No Constipation, No Melena, No Hematochezia, No Other Genitourinary: No Dysuria, No Frequency, No Incontinence, No Hematuria, No Retention, No Discharge, No Urgency, No Pain, No Flank Pain, No Other, No , No , No , No , No , No , No Musculoskeletal: Yes Joint Pain, Yes Joint Stiffness; No Gait Disturbance, No Joint Swelling, No Muscle Pain, No Muscular Weakness, No Pain In:, No Swelling In:, No Other Neurological: No Behavorial Changes, No Bowel/Bladder ControlChng, No Confusion, No Dizziness, No Gait Disturbance, No Headaches, No Impaired Coord/balance, No Memory Loss, No Numbness/Tingling, No Seizures, No Speech Problems, No Tremors, No Visual Changes, No Weakness, No Other Physical Exam General: Alert, Cooperative, No acute distress HEENT: Atraumatic, PERRLA Lungs: Clear to auscultation Heart: S1S2, RRR, no thrills Abdomen: Soft Extremities: No cyanosis, No edema, Normal pulses Neuro: Normal speech, Normal tone, Cranial nerves 3-12 NL Psych/Mental Status: Mental status NL, Mood NL, Other (flat affect) Vitals Vitals Vital Signs Date Time Temp Pulse Resp B/P (MAP) Pulse Ox O2 Delivery O2 Flow Rate FiO2 03/31/21 17:54 70 17 119/59 (79) 100 Nasal Cannula 2.0 03/31/21 16:15 98.4 98.4 Labs Labs Laboratory Tests Test 03/31/21 16:38 03/31/21 19:30 White Blood Count 4.4 x10^3/uL (4.0-11.0) Red Blood Count 4.45 x10^6/uL (3.50-5.40) Hemoglobin 12.0 g/dL (12.0-15.5) Hematocrit 35.8 % (36.0-47.0) Mean Corpuscular Volume 81 fL (79-100) Mean Corpuscular Hemoglobin 27 pg (25-35) Mean Corpuscular Hemoglobin Concent 34 g/dL (31-37) Red Cell Distribution Width 15.5 % (11.5-14.5) Platelet Count 261 x10^3/uL (140-400) Neutrophils (%) (Auto) 66 % (31-73) Lymphocytes (%) (Auto) 20 % (24-48) Monocytes (%) (Auto) 8 % (0-9) Eosinophils (%) (Auto) 5 % (0-3) Basophils (%) (Auto) 1 % (0-3) Neutrophils # (Auto) 2.9 x10^3/uL (1.8-7.7) Lymphocytes # (Auto) 0.9 x10^3/uL (1.0-4.8) Monocytes # (Auto) 0.4 x10^3/uL (0.0-1.1) Eosinophils # (Auto) 0.2 x10^3/uL (0.0-0.7) Basophils # (Auto) 0.0 x10^3/uL (0.0-0.2) Segmented Neutrophils % 74 % (35-66) Band Neutrophils % 6 % (0-9) Lymphocytes % 11 % (24-48) Monocytes % 6 % (0-10) Eosinophils % 3 % (0-5) Toxic Granulation Slight Platelet Estimate Adequate (ADEQUATE) Prothrombin Time 18.7 SEC (11.7-14.0) Prothromb Time International Ratio 1.6 (0.8-1.1) Activated Partial Thromboplast Time 55 SEC (24-38) Sodium Level 132 mmol/L (136-145) Potassium Level 4.2 mmol/L (3.5-5.1) Chloride Level 96 mmol/L (98-107) Carbon Dioxide Level 28 mmol/L (21-32) Anion Gap 8 (6-14) Blood Urea Nitrogen 80 mg/dL (7-20) Creatinine 3.3 mg/dL (0.6-1.0) Estimated GFR (Cockcroft-Gault) 13.9 BUN/Creatinine Ratio 24 (6-20) Glucose Level 84 mg/dL (70-99) Calcium Level 11.9 mg/dL (8.5-10.1) Magnesium Level 2.1 mg/dL (1.8-2.4) Total Bilirubin 0.5 mg/dL (0.2-1.0) Aspartate Amino Transf (AST/SGOT) 46 U/L (15-37) Alanine Aminotransferase (ALT/SGPT) 27 U/L (14-59) Alkaline Phosphatase 113 U/L (46-116) Troponin I High Sensitivity 7 ng/L (4-50) 7 ng/L (4-50) Total Protein 5.7 g/dL (6.4-8.2) Albumin 2.2 g/dL (3.4-5.0) Albumin/Globulin Ratio 0.6 (1.0-1.7) Laboratory Tests Test 03/31/21 16:38 03/31/21 19:30 White Blood Count 4.4 x10^3/uL (4.0-11.0) Red Blood Count 4.45 x10^6/uL (3.50-5.40) Hemoglobin 12.0 g/dL (12.0-15.5) Hematocrit 35.8 % (36.0-47.0) Mean Corpuscular Volume 81 fL (79-100) Mean Corpuscular Hemoglobin 27 pg (25-35) Mean Corpuscular Hemoglobin Concent 34 g/dL (31-37) Red Cell Distribution Width 15.5 % (11.5-14.5) Platelet Count 261 x10^3/uL (140-400) Neutrophils (%) (Auto) 66 % (31-73) Lymphocytes (%) (Auto) 20 % (24-48) Monocytes (%) (Auto) 8 % (0-9) Eosinophils (%) (Auto) 5 % (0-3) Basophils (%) (Auto) 1 % (0-3) Neutrophils # (Auto) 2.9 x10^3/uL (1.8-7.7) Lymphocytes # (Auto) 0.9 x10^3/uL (1.0-4.8) Monocytes # (Auto) 0.4 x10^3/uL (0.0-1.1) Eosinophils # (Auto) 0.2 x10^3/uL (0.0-0.7) Basophils # (Auto) 0.0 x10^3/uL (0.0-0.2) Segmented Neutrophils % 74 % (35-66) Band Neutrophils % 6 % (0-9) Lymphocytes % 11 % (24-48) Monocytes % 6 % (0-10) Eosinophils % 3 % (0-5) Toxic Granulation Slight Platelet Estimate Adequate (ADEQUATE) Prothrombin Time 18.7 SEC (11.7-14.0) Prothromb Time International Ratio 1.6 (0.8-1.1) Activated Partial Thromboplast Time 55 SEC (24-38) Sodium Level 132 mmol/L (136-145) Potassium Level 4.2 mmol/L (3.5-5.1) Chloride Level 96 mmol/L (98-107) Carbon Dioxide Level 28 mmol/L (21-32) Anion Gap 8 (6-14) Blood Urea Nitrogen 80 mg/dL (7-20) Creatinine 3.3 mg/dL (0.6-1.0) Estimated GFR (Cockcroft-Gault) 13.9 BUN/Creatinine Ratio 24 (6-20) Glucose Level 84 mg/dL (70-99) Calcium Level 11.9 mg/dL (8.5-10.1) Magnesium Level 2.1 mg/dL (1.8-2.4) Total Bilirubin 0.5 mg/dL (0.2-1.0) Aspartate Amino Transf (AST/SGOT) 46 U/L (15-37) Alanine Aminotransferase (ALT/SGPT) 27 U/L (14-59) Alkaline Phosphatase 113 U/L (46-116) Troponin I High Sensitivity 7 ng/L (4-50) 7 ng/L (4-50) Total Protein 5.7 g/dL (6.4-8.2) Albumin 2.2 g/dL (3.4-5.0) Albumin/Globulin Ratio 0.6 (1.0-1.7) VTE Prophylaxis Ordered VTE Prophylaxis Devices: Yes VTE Pharmacological Prophylaxi: Yes Assessment/Plan Assessment/Plan acute renal failure acute vasomotor nephropathy hypoxia, NOS, on home oxygen without known diagnosis anxiety disorder, chronic OA pain new 6cm spiculated lung mass, likely cancerous prior obesity, has gastric sleeve. Justifications for Admission Other Justification JANNY WILSON MD Mar 31, 2021 21:43
[2021-03-31 22:00] VITALS: BP 122/57
--- NOTE | 2021-03-31 22:00 | NUR ---
Admit from ER to 406. States "she just hasn't been feeling good" since January. "weak and sometimes short of air." Started O2 2l/nc on day of admit. Talks full sentences w/o apparent dyspnea. States she fell in her home 03/30/21, hit her head and laid on the floor for about 30 minutes before her son found her and picked her up. States she has lower back pain from the fall.
--- NOTE | 2021-04-01 03:03 | EKG ---
[facility] [address] [place] [address] Test Date: 2021-03-31 Test Time: 17:07:26 Pat Name: GRACIE THORNTON Department: Room: [facility] [place] Gender: F Mailroom Clerk: : 1950 Requested By: NAEEM GRAJEDA Order Number: [id number] Reading MD: Riki Barajas Measurements Intervals [place] Rate: 61 P: 0 [place]: 194 QRS: 39 QRSD: 76 T: 47 QT: 374 QTc: 378 Interpretive Statements SINUS RHYTHM Electronically Signed On 04-04-2021 16:48:01 FRAME CATCHER by Riki Barajas
--- NOTE | 2021-04-01 03:03 | EKG ---
[facility] [address] [place] [address] Test Date: 2021-03-31 Test Time: 16:42:03 Pat Name: GRACIE THORNTON Department: Room: [facility] Gender: F Reed Man: : 1950 Requested By: NAEEM GRAJEDA Order Number: [id number] Reading MD: Riki Barajas Measurements Intervals [place] Rate: 75 P: ND: QRS: 24 QRSD: 90 T: 7 QT: 380 QTc: 427 Interpretive Statements SINUS RHYTHM NON SPECIFIC ST-T WAVE CHANGES Electronically Signed On 04-04-2021 16:49:45 BLACK PICKLER by Riki Barajas
[2021-04-01 03:04] VITALS: BP 108/61
--- NOTE | 2021-04-01 03:43 | RAD ---
EXAM: RENAL ULTRASOUND CLINICAL HISTORY: renal failure COMPARISON: None available. TECHNIQUE: Ultrasound examination of the bilateral kidneys and urinary bladder was performed. FINDINGS: The right kidney measures 10.6 cm in bipolar length. The renal cortex is normal in thickness. Renal e chogenicity is increased. No hydronephrosis. Shadowing calculi are present. The left kidney measures 10.5 cm in bipolar length. The renal cortex is normal in thickness. Renal ec hogenicity is increased. No hydronephrosis. Shadowing calculi are present. Trace perinephric fluid. Images of the partially filled urinary bladder are unremarkable. IMPRESSION: 1. Bilateral increased renal cortical echogenicity, which can be seen with medical renal disease. 2. Nonobstructive bilateral renal calculi. 3. Trace left perinephric fluid. Electronically signed by: Ramana Miller MD (04/01/2021 3:41 AM) [facility]
--- NOTE | 2021-04-01 06:26 | NUR ---
IV infiltrated, 2 attempts unsuccessful thus far.
[2021-04-01 07:00] VITALS: BP 118/63
[2021-04-01 07:40] LABS: ALBUMIN 2.1 g/dL (3.4-5.0); ALBUMIN/GLOBULIN RATIO 0.6 (1.0-1.7); CALCIUM 11.8 mg/dL (8.5-10.1); CREATININE 3.3 mg/dL (0.6-1.0); GFR 13.9; TOTAL BILIRUBIN 0.5 mg/dL (0.2-1.0); TOTAL PROTEIN 5.4 g/dL (6.4-8.2)
[2021-04-01 07:42] LABS: BASO % 1 % (0-3); EOS # 0.2 x10^3/uL (0.0-0.7); EOS % 5 % (0-3); HEMATOCRIT 34.3 % (36.0-47.0); HEMOGLOBIN 11.3 g/dL (12.0-15.5); LYMPH # 0.6 x10^3/uL (1.0-4.8); LYMPH % 16 % (24-48); MEAN CORPUSCULAR HEMOGLOBIN 27 pg (25-35); MEAN CORPUSCULAR HGB CONC 33 g/dL (31-37); MEAN CORPUSCULAR VOLUME 81 fL (79-100); MONO # 0.3 x10^3/uL (0.0-1.1); MONO % 8 % (0-9); NEUT # 2.7 x10^3/uL (1.8-7.7); NEUT % 69 % (31-73); PLATELET COUNT 246 x10^3/uL (140-400); RED BLOOD COUNT 4.22 x10^6/uL (3.50-5.40); RED CELL DISTRIBUTION WIDTH 15.8 % (11.5-14.5); WHITE BLOOD COUNT 3.9 x10^3/uL (4.0-11.0)
--- NOTE | 2021-04-01 08:12 | PDOC ---
PULMONARY PROGRESS NOTES DATE: 04/01/21 TIME: 08:12 Vitals Vital Signs Date Time Temp Pulse Resp B/P (MAP) Pulse Ox O2 Delivery O2 Flow Rate FiO2 04/01/21 07:00 98.1 78 16 118/63 (81) 95 Nasal Cannula 2.0 98.1 Labs Laboratory Tests Test 03/31/21 16:38 03/31/21 19:30 04/01/21 06:20 White Blood Count 4.4 x10^3/uL (4.0-11.0) 3.9 x10^3/uL (4.0-11.0) Red Blood Count 4.45 x10^6/uL (3.50-5.40) 4.22 x10^6/uL (3.50-5.40) Hemoglobin 12.0 g/dL (12.0-15.5) 11.3 g/dL (12.0-15.5) Hematocrit 35.8 % (36.0-47.0) 34.3 % (36.0-47.0) Mean Corpuscular Volume 81 fL (79-100) 81 fL (79-100) Mean Corpuscular Hemoglobin 27 pg (25-35) 27 pg (25-35) Mean Corpuscular Hemoglobin Concent 34 g/dL (31-37) 33 g/dL (31-37) Red Cell Distribution Width 15.5 % (11.5-14.5) 15.8 % (11.5-14.5) Platelet Count 261 x10^3/uL (140-400) 246 x10^3/uL (140-400) Neutrophils (%) (Auto) 66 % (31-73) 69 % (31-73) Lymphocytes (%) (Auto) 20 % (24-48) 16 % (24-48) Monocytes (%) (Auto) 8 % (0-9) 8 % (0-9) Eosinophils (%) (Auto) 5 % (0-3) 5 % (0-3) Basophils (%) (Auto) 1 % (0-3) 1 % (0-3) Neutrophils # (Auto) 2.9 x10^3/uL (1.8-7.7) 2.7 x10^3/uL (1.8-7.7) Lymphocytes # (Auto) 0.9 x10^3/uL (1.0-4.8) 0.6 x10^3/uL (1.0-4.8) Monocytes # (Auto) 0.4 x10^3/uL (0.0-1.1) 0.3 x10^3/uL (0.0-1.1) Eosinophils # (Auto) 0.2 x10^3/uL (0.0-0.7) 0.2 x10^3/uL (0.0-0.7) Basophils # (Auto) 0.0 x10^3/uL (0.0-0.2) 0.0 x10^3/uL (0.0-0.2) Segmented Neutrophils % 74 % (35-66) Band Neutrophils % 6 % (0-9) Lymphocytes % 11 % (24-48) Monocytes % 6 % (0-10) Eosinophils % 3 % (0-5) Toxic Granulation Slight Platelet Estimate Adequate (ADEQUATE) Prothrombin Time 18.7 SEC (11.7-14.0) Prothromb Time International Ratio 1.6 (0.8-1.1) Activated Partial Thromboplast Time 55 SEC (24-38) Sodium Level 132 mmol/L (136-145) 134 mmol/L (136-145) Potassium Level 4.2 mmol/L (3.5-5.1) 4.0 mmol/L (3.5-5.1) Chloride Level 96 mmol/L (98-107) 98 mmol/L (98-107) Carbon Dioxide Level 28 mmol/L (21-32) 26 mmol/L (21-32) Anion Gap 8 (6-14) 10 (6-14) Blood Urea Nitrogen 80 mg/dL (7-20) 78 mg/dL (7-20) Creatinine 3.3 mg/dL (0.6-1.0) 3.3 mg/dL (0.6-1.0) Estimated GFR (Cockcroft-Gault) 13.9 13.9 BUN/Creatinine Ratio 24 (6-20) 24 (6-20) Glucose Level 84 mg/dL (70-99) 79 mg/dL (70-99) Calcium Level 11.9 mg/dL (8.5-10.1) 11.8 mg/dL (8.5-10.1) Magnesium Level 2.1 mg/dL (1.8-2.4) Total Bilirubin 0.5 mg/dL (0.2-1.0) 0.5 mg/dL (0.2-1.0) Aspartate Amino Transf (AST/SGOT) 46 U/L (15-37) 44 U/L (15-37) Alanine Aminotransferase (ALT/SGPT) 27 U/L (14-59) 25 U/L (14-59) Alkaline Phosphatase 113 U/L (46-116) 118 U/L (46-116) Troponin I High Sensitivity 7 ng/L (4-50) 7 ng/L (4-50) Total Protein 5.7 g/dL (6.4-8.2) 5.4 g/dL (6.4-8.2) Albumin 2.2 g/dL (3.4-5.0) 2.1 g/dL (3.4-5.0) Albumin/Globulin Ratio 0.6 (1.0-1.7) 0.6 (1.0-1.7) Laboratory Tests Test 03/31/21 16:38 03/31/21 19:30 04/01/21 06:20 White Blood Count 4.4 x10^3/uL (4.0-11.0) 3.9 x10^3/uL (4.0-11.0) Red Blood Count 4.45 x10^6/uL (3.50-5.40) 4.22 x10^6/uL (3.50-5.40) Hemoglobin 12.0 g/dL (12.0-15.5) 11.3 g/dL (12.0-15.5) Hematocrit 35.8 % (36.0-47.0) 34.3 % (36.0-47.0) Mean Corpuscular Volume 81 fL (79-100) 81 fL (79-100) Mean Corpuscular Hemoglobin 27 pg (25-35) 27 pg (25-35) Mean Corpuscular Hemoglobin Concent 34 g/dL (31-37) 33 g/dL (31-37) Red Cell Distribution Width 15.5 % (11.5-14.5) 15.8 % (11.5-14.5) Platelet Count 261 x10^3/uL (140-400) 246 x10^3/uL (140-400) Neutrophils (%) (Auto) 66 % (31-73) 69 % (31-73) Lymphocytes (%) (Auto) 20 % (24-48) 16 % (24-48) Monocytes (%) (Auto) 8 % (0-9) 8 % (0-9) Eosinophils (%) (Auto) 5 % (0-3) 5 % (0-3) Basophils (%) (Auto) 1 % (0-3) 1 % (0-3) Neutrophils # (Auto) 2.9 x10^3/uL (1.8-7.7) 2.7 x10^3/uL (1.8-7.7) Lymphocytes # (Auto) 0.9 x10^3/uL (1.0-4.8) 0.6 x10^3/uL (1.0-4.8) Monocytes # (Auto) 0.4 x10^3/uL (0.0-1.1) 0.3 x10^3/uL (0.0-1.1) Eosinophils # (Auto) 0.2 x10^3/uL (0.0-0.7) 0.2 x10^3/uL (0.0-0.7) Basophils # (Auto) 0.0 x10^3/uL (0.0-0.2) 0.0 x10^3/uL (0.0-0.2) Segmented Neutrophils % 74 % (35-66) Band Neutrophils % 6 % (0-9) Lymphocytes % 11 % (24-48) Monocytes % 6 % (0-10) Eosinophils % 3 % (0-5) Toxic Granulation Slight Platelet Estimate Adequate (ADEQUATE) Prothrombin Time 18.7 SEC (11.7-14.0) Prothromb Time International Ratio 1.6 (0.8-1.1) Activated Partial Thromboplast Time 55 SEC (24-38) Sodium Level 132 mmol/L (136-145) 134 mmol/L (136-145) Potassium Level 4.2 mmol/L (3.5-5.1) 4.0 mmol/L (3.5-5.1) Chloride Level 96 mmol/L (98-107) 98 mmol/L (98-107) Carbon Dioxide Level 28 mmol/L (21-32) 26 mmol/L (21-32) Anion Gap 8 (6-14) 10 (6-14) Blood Urea Nitrogen 80 mg/dL (7-20) 78 mg/dL (7-20) Creatinine 3.3 mg/dL (0.6-1.0) 3.3 mg/dL (0.6-1.0) Estimated GFR (Cockcroft-Gault) 13.9 13.9 BUN/Creatinine Ratio 24 (6-20) 24 (6-20) Glucose Level 84 mg/dL (70-99) 79 mg/dL (70-99) Calcium Level 11.9 mg/dL (8.5-10.1) 11.8 mg/dL (8.5-10.1) Magnesium Level 2.1 mg/dL (1.8-2.4) Total Bilirubin 0.5 mg/dL (0.2-1.0) 0.5 mg/dL (0.2-1.0) Aspartate Amino Transf (AST/SGOT) 46 U/L (15-37) 44 U/L (15-37) Alanine Aminotransferase (ALT/SGPT) 27 U/L (14-59) 25 U/L (14-59) Alkaline Phosphatase 113 U/L (46-116) 118 U/L (46-116) Troponin I High Sensitivity 7 ng/L (4-50) 7 ng/L (4-50) Total Protein 5.7 g/dL (6.4-8.2) 5.4 g/dL (6.4-8.2) Albumin 2.2 g/dL (3.4-5.0) 2.1 g/dL (3.4-5.0) Albumin/Globulin Ratio 0.6 (1.0-1.7) 0.6 (1.0-1.7) Medications Active Scripts Medications Dose Route/Sig Max Daily Dose Days Date Category Dose Instructions Meloxicam 7.5 Mg Tablet 7.5 Mg PO BID 30 05/27/18 Rx Tramadol Hcl 50 Mg Tablet 50 Mg PO PRN Q4HRS PRN MDD 600 mg 14 05/27/18 Rx Tramadol 50 mg Take one or two tablets every four hours, as needed for pain. Losartan-Hctz 100-12.5 Mg Tab (Losartan/Hydrochlorothiazide) 1 Each Tablet 1 Each PO DAILY 05/24/18 Reported Vitamin D (Cholecalciferol (Vitamin D3)) 2,000 Unit Capsule 5,000 Unit PO DAILY 05/09/18 Reported Hydroxyzine Hcl 25 Mg Tablet 25 Mg PO QID 05/09/18 Reported Ferrous Sulfate 325 Mg Tablet 1 Tab PO DAILY 30 02/11/18 Reported Tramadol Hcl 50 Mg Tablet 1-2 Tab PO Q4-6HRS PRN 02/11/18 Reported Tablet (Pnv Cmb#95/Ferrous Fumarate/Fa) 1 Each Tablet 1 Each PO DAILY 01/14/18 Reported Multivitamins (Multivitamin) 1 Each Tablet 1 Each PO DAILY 01/14/18 Reported Synthroid (Levothyroxine Sodium) 50 Mcg Tablet 50 Mcg PO DAILYAC 01/14/18 Reported Impression . Full consult dictated We will proceed with a diagnostic bronchoscopy Repeat PT/INR DOC AKBAR MD Apr 01, 2021 08:12
[2021-04-01] MEDS: LEVOTHYROXINE 50 MCG TABLET PO SCH (08:23)
--- NOTE | 2021-04-01 10:21 | PDOC2 ---
CONSULT Date of Consult Date of Consult DATE: 04/01/21 TIME: 10:11 Reason for Consult Reason for Consult: ARF Source Source: Chart review History of Present Illness Reason for Visit: Patient is a 70 year old CF presenting to the ED today to be evaluated for hypoxia and a mass in the lung. Patient states she has had cough and shortness of breath as well as upper back pain, symptoms have been going on since January. She states she has been seen by the PCP and they did a CT of her chest, CT was noted for 5.7 cm in the left upper lobe concerning for bronchogenic carcinoma. She was hypoxic at the doctor's office and had elevated creatinine and was sent to the Ed. Denies history of smoking. Patient also states that last night she fell hitting her head on the ground. Denies any loss of consciousness. She states she now has low back pain from the fall. Denies any N/V/D. Denies F/C. No Urinary complaints . She has close frien at her bedside who reports that patient had a dizzy spell recently and fell from the chair - patient confirms. She also reports she has been having severe burning sensation when she swallows something warm. She has been Hypoxic for alt least more than a month and O2 sats at home as low as 76 . Prior to al this she was very active - Mowing lawn etc She had Pneumonia in OctoberNov 2020 was treated with 2 kinds of PO Abx as OP by GARRETT PRABHAKAR - one of the was Levaquin . She also reports that she has been losing weight and has lost 15 lbs - Unintentional . Denies LE edema She has History of kidney stones- 1st Dx in 2017 - 2 large stones underwent Lithotripsy by Dr Muñiz . She has had multiple stones since the until 2018 but none in 2020 or this year . Denies any Flank or SP pain . Dnies gross hematuria . Denies use of NSAID's . Has been on Valsartan at least for 2 years. Not on Diuretcis. No new med changes, No OTC health supplements . No Dx od CAD or Arrythmias, No cardiac history, Follows with Dr. Gage Hx of Gastric Sleeve in 2013 Past Medical History Past Medical History HTN No CAD, No DM Nephrolithiasis + GI: Other Psych: Other Renal/: Other Endocrine: Hypothyroidism Past Surgical History Past Surgical History Gastric Sleeve 2013 Past Surgical History: Cholecystectomy, Tonsillectomy, Hysterectomy, Other Family History Family History: Alzheimer's Disease, Cancer, Diabetes, Stroke Social History No ALCOHOL: none Drugs: None Current Problem List Problem List Problems Medical Problems: (1) Acute renal failure Status: Acute (2) Bronchogenic carcinoma Status: Acute (3) Cough Status: Acute (4) Fall from standing Status: Acute (5) Low back pain Status: Acute (6) Shortness of breath Status: Acute Current Medications Current Medications Current Medications Sodium Chloride 1,000 ml @ 1,000 mls/hr 1X ONCE IV ; Start 03/31/21 at 19:30; Stop 03/31/21 at 20:29; Status DC Sodium Chloride 1,000 ml @ 1,000 mls/hr 1X ONCE IV ; Start 03/31/21 at 19:30; Stop 03/31/21 at 20:29; Status DC Ondansetron HCl (Zofran) 4 mg PRN Q8HRS PRN IVP NAUSEA/VOMITING; Start 03/31/21 at 19:30; Stop 04/01/21 at 19:29 Sodium Chloride 1,000 ml @ 125 mls/hr 1X ONCE IV Last administered on 04/01/21at 04:15; Start 03/31/21 at 19:30; Stop 04/01/21 at 03:29; Status DC Levothyroxine Sodium (Synthroid) 50 mcg DAILYAC PO Last administered on 04/01/21at 08:23; Start 04/01/21 at 07:30 Tramadol HCl (Ultram) 50 mg PRN Q4HRS PRN PO PAIN; Start 03/31/21 at 20:45 Hydroxyzine HCl (Atarax) 25 mg PRN Q6HRS PRN PO ITCHING; Start 03/31/21 at 20:45 Active Scripts Active Meloxicam 7.5 Mg Tablet 7.5 Mg PO BID 30 Days Tramadol Hcl 50 Mg Tablet 50 Mg PO PRN Q4HRS PRN MDD 600 mg 14 Days Tramadol 50 mg Take one or two tablets every four hours, as needed for pain. Reported Losartan-Hctz 100-12.5 Mg Tab (Losartan/Hydrochlorothiazide) 1 Each Tablet 1 Each PO DAILY Vitamin D (Cholecalciferol (Vitamin D3)) 2,000 Unit Capsule 5,000 Unit PO DAILY Hydroxyzine Hcl 25 Mg Tablet 25 Mg PO QID Ferrous Sulfate 325 Mg Tablet 1 Tab PO DAILY 30 Days Tramadol Hcl 50 Mg Tablet 1-2 Tab PO Q4-6HRS PRN Tablet (Pnv Cmb#95/Ferrous Fumarate/Fa) 1 Each Tablet 1 Each PO DAILY Multivitamins (Multivitamin) 1 Each Tablet 1 Each PO DAILY Synthroid (Levothyroxine Sodium) 50 Mcg Tablet 50 Mcg PO DAILYAC Allergies Allergies: Coded Allergies: Sulfa (Sulfonamide Antibiotics) (Verified Allergy, Severe, Anaphylaxis, 01/14/18) acetaminophen (Verified Allergy, Intermediate, Rash, 05/09/18) amoxicillin (Verified Allergy, Intermediate, Rash, 05/09/18) buspirone (Verified Allergy, Intermediate, Rash, 05/09/18) carbamazepine (Verified Allergy, Intermediate, Rash, 05/09/18) clavulanic acid (Verified Allergy, Intermediate, Rash, 05/09/18) lithium (Verified Allergy, Intermediate, Rash, 05/09/18) nickel (Verified Allergy, Unknown, Rash, 05/09/18) "skin discoloration" shellfish derived (Verified Adverse Reaction, Severe, Anaphylaxis, 01/14/18) adhesive (Verified Adverse Reaction, Intermediate, Rash, 01/14/18) "OP-SITE" alprazolam (Verified Adverse Reaction, Intermediate, 05/25/18) "run into quiroz" aspartame (Verified Adverse Reaction, Intermediate, 01/14/18) MOUTH BLISTERS/ULCERS hydrocodone (Verified Adverse Reaction, Intermediate, Rash, 01/14/18) kevin (Verified Adverse Reaction, Intermediate, Anaphylaxis, 01/14/18) oxycodone (Verified Adverse Reaction, Intermediate, Rash, 01/14/18) risperidone (Verified Adverse Reaction, Intermediate, 05/25/18) migraines trazodone (Verified Adverse Reaction, Intermediate, 05/25/18) migraines ROS Review of System As per HPI, rest of the ROS is negative Physical Exam Physical Exam General NAD HEEN OM moist, On 2 Lt O2 by NC Neck Supple Lungs Decreased at bases, Non labored CV s1s2 Abd Soft, NT No Alaniz, No CVA or SP tenderness Ext trace LE edema Rt LE edema Neuro Grossly Normal Psych Cooperative Derm no rash, No jaundice Vital Signs Vital Signs Date Time Temp Pulse Resp B/P (MAP) Pulse Ox O2 Delivery O2 Flow Rate FiO2 12/21 08:12 Nasal Cannula 2.0 04/01/21 07:00 98.1 78 16 118/63 (81 95 98.1 Assessment & Plan TENA - No interval baseline labs available to me since 2019 ; suspect ATN / Dizziness at home .Renal US done ordered night but UA not done. Check UA , continue IVF (Currently doesnt hv access) , Strict I/O , daily labs Renal US Bilateral increased renal cortical echogenicity, which can be seen with medical renal disease. Check UA , Supportive care, Maintain Hydration, Monitor daily labs , avoid nephrotoxins. Obtain records/Previous labs from CT (recent labs in Feb per patient) Nephrolithiasis - Nonobstructive bilateral renal calculi on US . No Hydronephrosis . mild perinephric fluid . Has significant history of kidney s tones- 2018 and 2019 required Intervention. Nonce since then HTN - AT home on ARB and Thiazide ; Currently BP's Lower . Hold both Ac Resp failure- Presented with Hypoxia, Low o2 sats at Home as well Lung Mass on Ct scan /Hypoxic ? GERD - per primary Had extensive discussion with patient and friend at bedside . Josafat RN Labs Labs Laboratory Tests Test 03/31/21 16:38 03/31/21 19:30 04/01/21 06:20 White Blood Count 4.4 x10^3/uL (4.0-11.0) 3.9 x10^3/uL (4.0-11.0) Red Blood Count 4.45 x10^6/uL (3.50-5.40) 4.22 x10^6/uL (3.50-5.40) Hemoglobin 12.0 g/dL (12.0-15.5) 11.3 g/dL (12.0-15.5) Hematocrit 35.8 % (36.0-47.0) 34.3 % (36.0-47.0) Mean Corpuscular Volume 81 fL (79-100) 81 fL (79-100) Mean Corpuscular Hemoglobin 27 pg (25-35) 27 pg (25-35) Mean Corpuscular Hemoglobin Concent 34 g/dL (31-37) 33 g/dL (31-37) Red Cell Distribution Width 15.5 % (11.5-14.5) 15.8 % (11.5-14.5) Platelet Count 261 x10^3/uL (140-400) 246 x10^3/uL (140-400) Neutrophils (%) (Auto) 66 % (31-73) 69 % (31-73) Lymphocytes (%) (Auto) 20 % (24-48) 16 % (24-48) Monocytes (%) (Auto) 8 % (0-9) 8 % (0-9) Eosinophils (%) (Auto) 5 % (0-3) 5 % (0-3) Basophils (%) (Auto) 1 % (0-3) 1 % (0-3) Neutrophils # (Auto) 2.9 x10^3/uL (1.8-7.7) 2.7 x10^3/uL (1.8-7.7) Lymphocytes # (Auto) 0.9 x10^3/uL (1.0-4.8) 0.6 x10^3/uL (1.0-4.8) Monocytes # (Auto) 0.4 x10^3/uL (0.0-1.1) 0.3 x10^3/uL (0.0-1.1) Eosinophils # (Auto) 0.2 x10^3/uL (0.0-0.7) 0.2 x10^3/uL (0.0-0.7) Basophils # (Auto) 0.0 x10^3/uL (0.0-0.2) 0.0 x10^3/uL (0.0-0.2) Segmented Neutrophils % 74 % (35-66) Band Neutrophils % 6 % (0-9) Lymphocytes % 11 % (24-48) Monocytes % 6 % (0-10) Eosinophils % 3 % (0-5) Toxic Granulation Slight Platelet Estimate Adequate (ADEQUATE) Prothrombin Time 18.7 SEC (11.7-14.0) Prothromb Time International Ratio 1.6 (0.8-1.1) Activated Partial Thromboplast Time 55 SEC (24-38) Sodium Level 132 mmol/L (136-145) 134 mmol/L (136-145) Potassium Level 4.2 mmol/L (3.5-5.1) 4.0 mmol/L (3.5-5.1) Chloride Level 96 mmol/L (98-107) 98 mmol/L (98-107) Carbon Dioxide Level 28 mmol/L (21-32) 26 mmol/L (21-32) Anion Gap 8 (6-14) 10 (6-14) Blood Urea Nitrogen 80 mg/dL (7-20) 78 mg/dL (7-20) Creatinine 3.3 mg/dL (0.6-1.0) 3.3 mg/dL (0.6-1.0) Estimated GFR (Cockcroft-Gault) 13.9 13.9 BUN/Creatinine Ratio 24 (6-20) 24 (6-20) Glucose Level 84 mg/dL (70-99) 79 mg/dL (70-99) Calcium Level 11.9 mg/dL (8.5-10.1) 11.8 mg/dL (8.5-10.1) Magnesium Level 2.1 mg/dL (1.8-2.4) Total Bilirubin 0.5 mg/dL (0.2-1.0) 0.5 mg/dL (0.2-1.0) Aspartate Amino Transf (AST/SGOT) 46 U/L (15-37) 44 U/L (15-37) Alanine Aminotransferase (ALT/SGPT) 27 U/L (14-59) 25 U/L (14-59) Alkaline Phosphatase 113 U/L (46-116) 118 U/L (46-116) Troponin I High Sensitivity 7 ng/L (4-50) 7 ng/L (4-50) Total Protein 5.7 g/dL (6.4-8.2) 5.4 g/dL (6.4-8.2) Albumin 2.2 g/dL (3.4-5.0) 2.1 g/dL (3.4-5.0) Albumin/Globulin Ratio 0.6 (1.0-1.7) 0.6 (1.0-1.7) Laboratory Tests Test 03/31/21 16:38 03/31/21 19:30 04/01/21 06:20 White Blood Count 4.4 x10^3/uL (4.0-11.0) 3.9 x10^3/uL (4.0-11.0) Red Blood Count 4.45 x10^6/uL (3.50-5.40) 4.22 x10^6/uL (3.50-5.40) Hemoglobin 12.0 g/dL (12.0-15.5) 11.3 g/dL (12.0-15.5) Hematocrit 35.8 % (36.0-47.0) 34.3 % (36.0-47.0) Mean Corpuscular Volume 81 fL (79-100) 81 fL (79-100) Mean Corpuscular Hemoglobin 27 pg (25-35) 27 pg (25-35) Mean Corpuscular Hemoglobin Concent 34 g/dL (31-37) 33 g/dL (31-37) Red Cell Distribution Width 15.5 % (11.5-14.5) 15.8 % (11.5-14.5) Platelet Count 261 x10^3/uL (140-400) 246 x10^3/uL (140-400) Neutrophils (%) (Auto) 66 % (31-73) 69 % (31-73) Lymphocytes (%) (Auto) 20 % (24-48) 16 % (24-48) Monocytes (%) (Auto) 8 % (0-9) 8 % (0-9) Eosinophils (%) (Auto) 5 % (0-3) 5 % (0-3) Basophils (%) (Auto) 1 % (0-3) 1 % (0-3) Neutrophils # (Auto) 2.9 x10^3/uL (1.8-7.7) 2.7 x10^3/uL (1.8-7.7) Lymphocytes # (Auto) 0.9 x10^3/uL (1.0-4.8) 0.6 x10^3/uL (1.0-4.8) Monocytes # (Auto) 0.4 x10^3/uL (0.0-1.1) 0.3 x10^3/uL (0.0-1.1) Eosinophils # (Auto) 0.2 x10^3/uL (0.0-0.7) 0.2 x10^3/uL (0.0-0.7) Basophils # (Auto) 0.0 x10^3/uL (0.0-0.2) 0.0 x10^3/uL (0.0-0.2) Segmented Neutrophils % 74 % (35-66) Band Neutrophils % 6 % (0-9) Lymphocytes % 11 % (24-48) Monocytes % 6 % (0-10) Eosinophils % 3 % (0-5) Toxic Granulation Slight Platelet Estimate Adequate (ADEQUATE) Prothrombin Time 18.7 SEC (11.7-14.0) Prothromb Time International Ratio 1.6 (0.8-1.1) Activated Partial Thromboplast Time 55 SEC (24-38) Sodium Level 132 mmol/L (136-145) 134 mmol/L (136-145) Potassium Level 4.2 mmol/L (3.5-5.1) 4.0 mmol/L (3.5-5.1) Chloride Level 96 mmol/L (98-107) 98 mmol/L (98-107) Carbon Dioxide Level 28 mmol/L (21-32) 26 mmol/L (21-32) Anion Gap 8 (6-14) 10 (6-14) Blood Urea Nitrogen 80 mg/dL (7-20) 78 mg/dL (7-20) Creatinine 3.3 mg/dL (0.6-1.0) 3.3 mg/dL (0.6-1.0) Estimated GFR (Cockcroft-Gault) 13.9 13.9 BUN/Creatinine Ratio 24 (6-20) 24 (6-20) Glucose Level 84 mg/dL (70-99) 79 mg/dL (70-99) Calcium Level 11.9 mg/dL (8.5-10.1) 11.8 mg/dL (8.5-10.1) Magnesium Level 2.1 mg/dL (1.8-2.4) Total Bilirubin 0.5 mg/dL (0.2-1.0) 0.5 mg/dL (0.2-1.0) Aspartate Amino Transf (AST/SGOT) 46 U/L (15-37) 44 U/L (15-37) Alanine Aminotransferase (ALT/SGPT) 27 U/L (14-59) 25 U/L (14-59) Alkaline Phosphatase 113 U/L (46-116) 118 U/L (46-116) Troponin I High Sensitivity 7 ng/L (4-50) 7 ng/L (4-50) Total Protein 5.7 g/dL (6.4-8.2) 5.4 g/dL (6.4-8.2) Albumin 2.2 g/dL (3.4-5.0) 2.1 g/dL (3.4-5.0) Albumin/Globulin Ratio 0.6 (1.0-1.7) 0.6 (1.0-1.7) Review All relevant outside records, renal labs, imaging studies, telemetry/EKG's were reviewed. Images Images RENAL ULTRASOUND CLINICAL HISTORY: renal failure COMPARISON: None available. TECHNIQUE: Ultrasound examination of the bilateral kidneys and urinary bladder was performed. FINDINGS: The right kidney measures 10.6 cm in bipolar length. The renal cortex is normal in thickness. Renal echogenicity is increased. No hydronephrosis. Shadowing calculi are present. The left kidney measures 10.5 cm in bipolar length. The renal cortex is normal in thickness. Renal echogenicity is increased. No hydronephrosis. Shadowing calculi are present. Trace perinephric fluid. Images of the partially filled urinary bladder are unremarkable. IMPRESSION: 1. Bilateral increased renal cortical echogenicity, which can be seen with medical renal disease. 2. Nonobstructive bilateral renal calculi. 3. Trace left perinephric fluid. MARY ODEN MD Apr 01, 2021 10:21
[2021-04-01 11:00] VITALS: BP 133/67
--- NOTE | 2021-04-01 11:12 | RAD ---
XR CHEST 2V History: Reason: lung mass / Spl. Instructions: / History: Comparison: January 17, [address] March 28, 2021 Findings: Left perihilar mass is not well characterized on radiographs. Linear right basilar atelectasis. Decre ased pleural effusion compared to prior on the right. DISH related changes of the thoracic spine. Chr onic left-sided rib fractures. Surgical clips right upper quadrant. Impression: 1. Left perihilar mass is not well characterized on radiographs. 2. Mild linear right basilar atelectasis. Electronically signed by: Tray Cooper DO (04/01/2021 11:10 AM) [id number]
--- NOTE | 2021-04-01 11:31 | NUR ---
SW following. Discussed with RN, pt from home with son, 2L (uses oxygen at home), renal diet. Nephrology and Pulmonology following. Some discussion about a bronchoscopy. RN advised no SW needs at this time. SW will continue to follow.
[2021-04-01 11:57] LABS: BILIRUBIN,URINE NEGATIVE (NEG); CLARITY,URINE CLOUDY; COLOR,URINE YELLOW; NITRITE,URINE NEGATIVE (NEG); PROTEIN,URINE NEGATIVE (NEG-TRACE); UROBILINOGEN,URINE 0.2 mg/dL (0.2 mg/dL)
[2021-04-01 12:10] LABS: BACTERIA,URINE FEW /HPF (0-FEW); RBC,URINE 0 /HPF (0-2)
--- NOTE | 2021-04-01 12:20 | PDOC ---
[employer] PROGRESS NOTE Date of Service DOS: DATE: 04/01/21 TIME: 12:19 Chief Complaint Chief Complaint acute renal failure acute vasomotor nephropathy hypoxia, NOS, on home oxygen without known diagnosis anxiety disorder, chronic OA pain new 5.7 cm spiculated lung mass, likely cancerous prior obesity, has gastric sleeve.\ many drug allergies History of Present Illness History of Present Illness PO intake better good urine outptu cont other Vitals/I&O Vitals/I&O: Vital Signs Date Time Temp Pulse Resp B/P (MAP) Pulse Ox O2 Delivery O2 Flow Rate FiO2 04/01/21 11:00 97.9 68 18 133/67 (89) 97 Nasal Cannula 2.0 97.9 I & O 03/31/21 03/31/21 04/01/21 15:00 23:00 07:00 Output Total 600 ml Balance -600 ml Physical Exam General: Alert, Cooperative, No acute distress Abdomen: Soft Extremities: No cyanosis, No edema, Normal pulses Labs Labs: Laboratory Tests Test 03/31/21 16:38 03/31/21 19:30 04/01/21 06:20 04/01/21 11:45 White Blood Count 4.4 x10^3/uL (4.0-11.0) 3.9 x10^3/uL (4.0-11.0) Red Blood Count 4.45 x10^6/uL (3.50-5.40) 4.22 x10^6/uL (3.50-5.40) Hemoglobin 12.0 g/dL (12.0-15.5) 11.3 g/dL (12.0-15.5) Hematocrit 35.8 % (36.0-47.0) 34.3 % (36.0-47.0) Mean Corpuscular Volume 81 fL (79-100) 81 fL (79-100) Mean Corpuscular Hemoglobin 27 pg (25-35) 27 pg (25-35) Mean Corpuscular Hemoglobin Concent 34 g/dL (31-37) 33 g/dL (31-37) Red Cell Distribution Width 15.5 % (11.5-14.5) 15.8 % (11.5-14.5) Platelet Count 261 x10^3/uL (140-400) 246 x10^3/uL (140-400) Neutrophils (%) (Auto) 66 % (31-73) 69 % (31-73) Lymphocytes (%) (Auto) 20 % (24-48) 16 % (24-48) Monocytes (%) (Auto) 8 % (0-9) 8 % (0-9) Eosinophils (%) (Auto) 5 % (0-3) 5 % (0-3) Basophils (%) (Auto) 1 % (0-3) 1 % (0-3) Neutrophils # (Auto) 2.9 x10^3/uL (1.8-7.7) 2.7 x10^3/uL (1.8-7.7) Lymphocytes # (Auto) 0.9 x10^3/uL (1.0-4.8) 0.6 x10^3/uL (1.0-4.8) Monocytes # (Auto) 0.4 x10^3/uL (0.0-1.1) 0.3 x10^3/uL (0.0-1.1) Eosinophils # (Auto) 0.2 x10^3/uL (0.0-0.7) 0.2 x10^3/uL (0.0-0.7) Basophils # (Auto) 0.0 x10^3/uL (0.0-0.2) 0.0 x10^3/uL (0.0-0.2) Segmented Neutrophils % 74 % (35-66) Band Neutrophils % 6 % (0-9) Lymphocytes % 11 % (24-48) Monocytes % 6 % (0-10) Eosinophils % 3 % (0-5) Toxic Granulation Slight Platelet Estimate Adequate (ADEQUATE) Prothrombin Time 18.7 SEC (11.7-14.0) Prothromb Time International Ratio 1.6 (0.8-1.1) Activated Partial Thromboplast Time 55 SEC (24-38) Sodium Level 132 mmol/L (136-145) 134 mmol/L (136-145) Potassium Level 4.2 mmol/L (3.5-5.1) 4.0 mmol/L (3.5-5.1) Chloride Level 96 mmol/L (98-107) 98 mmol/L (98-107) Carbon Dioxide Level 28 mmol/L (21-32) 26 mmol/L (21-32) Anion Gap 8 (6-14) 10 (6-14) Blood Urea Nitrogen 80 mg/dL (7-20) 78 mg/dL (7-20) Creatinine 3.3 mg/dL (0.6-1.0) 3.3 mg/dL (0.6-1.0) Estimated GFR (Cockcroft-Gault) 13.9 13.9 BUN/Creatinine Ratio 24 (6-20) 24 (6-20) Glucose Level 84 mg/dL (70-99) 79 mg/dL (70-99) Calcium Level 11.9 mg/dL (8.5-10.1) 11.8 mg/dL (8.5-10.1) Magnesium Level 2.1 mg/dL (1.8-2.4) Total Bilirubin 0.5 mg/dL (0.2-1.0) 0.5 mg/dL (0.2-1.0) Aspartate Amino Transf (AST/SGOT) 46 U/L (15-37) 44 U/L (15-37) Alanine Aminotransferase (ALT/SGPT) 27 U/L (14-59) 25 U/L (14-59) Alkaline Phosphatase 113 U/L (46-116) 118 U/L (46-116) Troponin I High Sensitivity 7 ng/L (4-50) 7 ng/L (4-50) Total Protein 5.7 g/dL (6.4-8.2) 5.4 g/dL (6.4-8.2) Albumin 2.2 g/dL (3.4-5.0) 2.1 g/dL (3.4-5.0) Albumin/Globulin Ratio 0.6 (1.0-1.7) 0.6 (1.0-1.7) Urine Collection Type Unknown Urine Color Yellow Urine Clarity Cloudy Urine pH 5.0 (<5.0-8.0) Urine Specific [place] 1.015 (1.000-1.030) Urine Protein Negative mg/dL (NEG-TRACE) Urine Glucose (UA) Negative mg/dL (NEG) Urine Ketones (Stick) Negative mg/dL (NEG) Urine Blood Negative (NEG) Urine Nitrite Negative (NEG) Urine Bilirubin Negative (NEG) Urine Urobilinogen Dipstick 0.2 mg/dL (0.2 mg/dL) Urine Leukocyte Esterase Small (NEG) Urine RBC 0 /HPF (0-2) Urine WBC 1-4 /HPF (0-4) Urine Squamous Epithelial Cells Few /LPF Urine Renal Epithelial Cells Few /LPF Urine Bacteria Few /HPF (0-FEW) Urine Mucus Slight /LPF Assessment and Plan Assessmemt and Plan Problems Medical Problems: (1) Acute renal failure Status: Acute (2) Bronchogenic carcinoma Status: Acute (3) Cough Status: Acute (4) Fall from standing Status: Acute (5) Low back pain Status: Acute (6) Shortness of breath Status: Acute Comment Review of Relevant I have reviewed the following items isidro (where applicable) has been applied. Medications: Current Medications Medications (Trade) Dose Ordered Sig/Haylie Route PRN Reason Start Time Stop Time Status Last Admin Dose Admin Sodium Chloride 1,000 ml @ 125 mls/hr 1X ONCE IV 03/31/21 19:30 04/01/21 03:29 DC 04/01/21 04:15 Levothyroxine Sodium (Synthroid) 50 mcg DAILYAC PO 04/01/21 07:30 04/01/21 08:23 Justifications for Admission Other Justification JANNY WILSON MD Apr 01, 2021 12:20
[2021-04-01 15:00] VITALS: BP 126/68
[2021-04-01 19:00] VITALS: BP 114/56
--- NOTE | 2021-04-01 22:14 | CONS ---
DATE OF CONSULTATION: 04/01/2021 ATTENDING PHYSICIAN: Sofia Francis MD REASON FOR CONSULTATION: The patient is seen in pulmonary consultation at the request of Dr. Francis for new-onset hypoxemia, abnormal CT chest revealing left hilar mass. HISTORY OF PRESENT ILLNESS: The patient is a 70-year-old that was evaluated in the Emergency Room for hypoxemia. She underwent a CT chest at [facility] revealing left hilar mass. She was admitted to [facility]. I was asked to see her in consultation. The patient is a lifetime nonsmoker. She has lost quite a bit of weight. She was treated for pneumonia back in November. She states that since then she has never been felt the same. She has also been experiencing some dyspnea with exertion. She was checking O2 sats at home and they were low. She followed up with her PCP. Eventually, she was recently started on oxygen supplementation. In addition to the above, she has had some difficulty with dysphagia. She also fell a couple of days ago. She did undergo a CT head and CT neck with no significant pathological findings. PAST MEDICAL HISTORY: She is status post previous gastric bypass, she has never smoked, she recently had pneumonia and was admitted. She has had some difficulty with hearing deficits and hypothyroidism. PAST SURGICAL HISTORY: Status post cholecystectomy, tonsillectomy, hysterectomy. FAMILY HISTORY: Alzheimer's, cancer, diabetes and stroke. SOCIAL HISTORY: She has never smoked. REVIEW OF SYSTEMS: As indicated above, otherwise other systems were reviewed and negative. ALLERGIES: MULTIPLE ALLERGIES PLEASE SEE THE LIST. PHYSICAL EXAMINATION: VITAL SIGNS: Stable. O2 saturation was greater than 92%, currently saturation on 2 liters is 94%. HEENT: Eyes: The sclerae were nonicteric. NECK: Jugular venous distention was not elevated. No lymphadenopathy. CHEST: Full expansion. LUNGS: Adequate air flow with no wheezes. CARDIOVASCULAR: Regular rate and rhythm with S1, S2, no S3. ABDOMEN: Soft. EXTREMITIES: No clubbing, cyanosis or edema. NEUROLOGIC: The patient was awake, alert, following commands. A detailed neuro exam was not performed. LABORATORY DATA: Labs were reviewed. Electrolytes were noted. BUN and creatinine was noted to be elevated. AST was 46. Albumin was low. INR was 1.6. CT chest from [facility] was reviewed. There is a large left hilar mass abutting the aorta. There was also compression, to my eyes, of esophagus and bronchial tubes. IMPRESSION: 1. Acute hypoxemic respiratory failure. 2. Left hilar mass. 3. Weight loss. 4. Acute renal failure. 5. Protein malnutrition, present upon admission. 6. Hyponatremia. 7. Elevated INR. PLAN: We will proceed with a diagnostic bronchoscopy, repeat INR in the a.m. I reviewed the risks, benefits and alternatives with the patient, she has consented. I am concerned that she has some malignancy, she is also having some dysphagia, I will consult GI. It appears on the CT chest that the mass is pressing up against the esophagus. I do appreciate the privilege in sharing in the patient's care. JOEL/MIRTA/BINDU DR: Magda TID: [id number]
--- NOTE | 2021-04-01 22:39 | NUR ---
Covid swabs x2 sent to lab.
[2021-04-01 23:00] VITALS: BP 121/68
[2021-04-02] VITALS (7 sets, daily range): BP systolic 110–154; BP diastolic 53–74
[2021-04-02 04:52] LABS: PROTHROMBIN TIME PATIENT 17.1 SEC (11.7-14.0)
[2021-04-02 05:07] LABS: CALCIUM 11.4 mg/dL (8.5-10.1); GFR 15.5; PHOSPHORUS 4.9 mg/dL (2.6-4.7); POTASSIUM 3.8 mmol/L (3.5-5.1)
[2021-04-02] MEDS: LEVOTHYROXINE 50 MCG TABLET PO SCH (05:28)
--- NOTE | 2021-04-02 08:13 | PDOC ---
PULMONARY PROGRESS NOTES DATE: 04/02/21 TIME: 08:13 Subjective Patient not more short of breath. No chest pain no pressure no hemoptysis Vitals Vital Signs Date Time Temp Pulse Resp B/P (MAP) Pulse Ox O2 Delivery O2 Flow Rate FiO2 04/02/21 03:00 97.7 65 16 115/60 (78) 99 Nasal Cannula 2.0 97.7 ROS: No Nausea, No Chest Pain, No Abdominal Pain, No Increase Cough General: Alert Lungs: Clear Cardiovascular: S1, S2 Abdomen: Soft Neuro Exam: Alert Extremities: No Edema Skin: Warm Labs Laboratory Tests Test 03/31/21 16:38 03/31/21 19:30 04/01/21 06:20 04/01/21 11:45 White Blood Count 4.4 x10^3/uL (4.0-11.0) 3.9 x10^3/uL (4.0-11.0) Red Blood Count 4.45 x10^6/uL (3.50-5.40) 4.22 x10^6/uL (3.50-5.40) Hemoglobin 12.0 g/dL (12.0-15.5) 11.3 g/dL (12.0-15.5) Hematocrit 35.8 % (36.0-47.0) 34.3 % (36.0-47.0) Mean Corpuscular Volume 81 fL (79-100) 81 fL (79-100) Mean Corpuscular Hemoglobin 27 pg (25-35) 27 pg (25-35) Mean Corpuscular Hemoglobin Concent 34 g/dL (31-37) 33 g/dL (31-37) Red Cell Distribution Width 15.5 % (11.5-14.5) 15.8 % (11.5-14.5) Platelet Count 261 x10^3/uL (140-400) 246 x10^3/uL (140-400) Neutrophils (%) (Auto) 66 % (31-73) 69 % (31-73) Lymphocytes (%) (Auto) 20 % (24-48) 16 % (24-48) Monocytes (%) (Auto) 8 % (0-9) 8 % (0-9) Eosinophils (%) (Auto) 5 % (0-3) 5 % (0-3) Basophils (%) (Auto) 1 % (0-3) 1 % (0-3) Neutrophils # (Auto) 2.9 x10^3/uL (1.8-7.7) 2.7 x10^3/uL (1.8-7.7) Lymphocytes # (Auto) 0.9 x10^3/uL (1.0-4.8) 0.6 x10^3/uL (1.0-4.8) Monocytes # (Auto) 0.4 x10^3/uL (0.0-1.1) 0.3 x10^3/uL (0.0-1.1) Eosinophils # (Auto) 0.2 x10^3/uL (0.0-0.7) 0.2 x10^3/uL (0.0-0.7) Basophils # (Auto) 0.0 x10^3/uL (0.0-0.2) 0.0 x10^3/uL (0.0-0.2) Segmented Neutrophils % 74 % (35-66) Band Neutrophils % 6 % (0-9) Lymphocytes % 11 % (24-48) Monocytes % 6 % (0-10) Eosinophils % 3 % (0-5) Toxic Granulation Slight Platelet Estimate Adequate (ADEQUATE) Prothrombin Time 18.7 SEC (11.7-14.0) Prothromb Time International Ratio 1.6 (0.8-1.1) Activated Partial Thromboplast Time 55 SEC (24-38) Sodium Level 132 mmol/L (136-145) 134 mmol/L (136-145) Potassium Level 4.2 mmol/L (3.5-5.1) 4.0 mmol/L (3.5-5.1) Chloride Level 96 mmol/L (98-107) 98 mmol/L (98-107) Carbon Dioxide Level 28 mmol/L (21-32) 26 mmol/L (21-32) Anion Gap 8 (6-14) 10 (6-14) Blood Urea Nitrogen 80 mg/dL (7-20) 78 mg/dL (7-20) Creatinine 3.3 mg/dL (0.6-1.0) 3.3 mg/dL (0.6-1.0) Estimated GFR (Cockcroft-Gault) 13.9 13.9 BUN/Creatinine Ratio 24 (6-20) 24 (6-20) Glucose Level 84 mg/dL (70-99) 79 mg/dL (70-99) Calcium Level 11.9 mg/dL (8.5-10.1) 11.8 mg/dL (8.5-10.1) Magnesium Level 2.1 mg/dL (1.8-2.4) Total Bilirubin 0.5 mg/dL (0.2-1.0) 0.5 mg/dL (0.2-1.0) Aspartate Amino Transf (AST/SGOT) 46 U/L (15-37) 44 U/L (15-37) Alanine Aminotransferase (ALT/SGPT) 27 U/L (14-59) 25 U/L (14-59) Alkaline Phosphatase 113 U/L (46-116) 118 U/L (46-116) Troponin I High Sensitivity 7 ng/L (4-50) 7 ng/L (4-50) Total Protein 5.7 g/dL (6.4-8.2) 5.4 g/dL (6.4-8.2) Albumin 2.2 g/dL (3.4-5.0) 2.1 g/dL (3.4-5.0) Albumin/Globulin Ratio 0.6 (1.0-1.7) 0.6 (1.0-1.7) Urine Collection Type Unknown Urine Color Yellow Urine Clarity Cloudy Urine pH 5.0 (<5.0-8.0) Urine Specific [place] 1.015 (1.000-1.030) Urine Protein Negative mg/dL (NEG-TRACE) Urine Glucose (UA) Negative mg/dL (NEG) Urine Ketones (Stick) Negative mg/dL (NEG) Urine Blood Negative (NEG) Urine Nitrite Negative (NEG) Urine Bilirubin Negative (NEG) Urine Urobilinogen Dipstick 0.2 mg/dL (0.2 mg/dL) Urine Leukocyte Esterase Small (NEG) Urine RBC 0 /HPF (0-2) Urine WBC 1-4 /HPF (0-4) Urine Squamous Epithelial Cells Few /LPF Urine Renal Epithelial Cells Few /LPF Urine Bacteria Few /HPF (0-FEW) Urine Mucus Slight /LPF Test 04/01/21 22:30 04/02/21 03:55 SARS-CoV-2 Antigen (Rapid) Negative (NEGATIVE) Prothrombin Time 17.1 SEC (11.7-14.0) Prothromb Time International Ratio 1.4 (0.8-1.1) Sodium Level 138 mmol/L (136-145) Potassium Level 3.8 mmol/L (3.5-5.1) Chloride Level 103 mmol/L (98-107) Carbon Dioxide Level 25 mmol/L (21-32) Anion Gap 10 (6-14) Blood Urea Nitrogen 71 mg/dL (7-20) Creatinine 3.0 mg/dL (0.6-1.0) Estimated GFR (Cockcroft-Gault) 15.5 Glucose Level 76 mg/dL (70-99) Calcium Level 11.4 mg/dL (8.5-10.1) Phosphorus Level 4.9 mg/dL (2.6-4.7) Albumin 2.0 g/dL (3.4-5.0) Laboratory Tests Test 04/01/21 11:45 04/01/21 22:30 04/02/21 03:55 Urine Collection Type Unknown Urine Color Yellow Urine Clarity Cloudy Urine pH 5.0 (<5.0-8.0) Urine Specific [place] 1.015 (1.000-1.030) Urine Protein Negative mg/dL (NEG-TRACE) Urine Glucose (UA) Negative mg/dL (NEG) Urine Ketones (Stick) Negative mg/dL (NEG) Urine Blood Negative (NEG) Urine Nitrite Negative (NEG) Urine Bilirubin Negative (NEG) Urine Urobilinogen Dipstick 0.2 mg/dL (0.2 mg/dL) Urine Leukocyte Esterase Small (NEG) Urine RBC 0 /HPF (0-2) Urine WBC 1-4 /HPF (0-4) Urine Squamous Epithelial Cells Few /LPF Urine Renal Epithelial Cells Few /LPF Urine Bacteria Few /HPF (0-FEW) Urine Mucus Slight /LPF SARS-CoV-2 Antigen (Rapid) Negative (NEGATIVE) Prothrombin Time 17.1 SEC (11.7-14.0) Prothromb Time International Ratio 1.4 (0.8-1.1) Sodium Level 138 mmol/L (136-145) Potassium Level 3.8 mmol/L (3.5-5.1) Chloride Level 103 mmol/L (98-107) Carbon Dioxide Level 25 mmol/L (21-32) Anion Gap 10 (6-14) Blood Urea Nitrogen 71 mg/dL (7-20) Creatinine 3.0 mg/dL (0.6-1.0) Estimated GFR (Cockcroft-Gault) 15.5 Glucose Level 76 mg/dL (70-99) Calcium Level 11.4 mg/dL (8.5-10.1) Phosphorus Level 4.9 mg/dL (2.6-4.7) Albumin 2.0 g/dL (3.4-5.0) Medications Active Scripts Medications Dose Route/Sig Max Daily Dose Days Date Category Dose Instructions Meloxicam 7.5 Mg Tablet 7.5 Mg PO BID 30 05/27/18 Rx Tramadol Hcl 50 Mg Tablet 50 Mg PO PRN Q4HRS PRN MDD 600 mg 14 05/27/18 Rx Tramadol 50 mg Take one or two tablets every four hours, as needed for pain. Losartan-Hctz 100-12.5 Mg Tab (Losartan/Hydrochlorothiazide) 1 Each Tablet 1 Each PO DAILY 05/24/18 Reported Vitamin D (Cholecalciferol (Vitamin D3)) 2,000 Unit Capsule 5,000 Unit PO DAILY 05/09/18 Reported Hydroxyzine Hcl 25 Mg Tablet 25 Mg PO QID 05/09/18 Reported Ferrous Sulfate 325 Mg Tablet 1 Tab PO DAILY 30 02/11/18 Reported Tramadol Hcl 50 Mg Tablet 1-2 Tab PO Q4-6HRS PRN 02/11/18 Reported Tablet (Pnv Cmb#95/Ferrous Fumarate/Fa) 1 Each Tablet 1 Each PO DAILY 01/14/18 Reported Multivitamins (Multivitamin) 1 Each Tablet 1 Each PO DAILY 01/14/18 Reported Synthroid (Levothyroxine Sodium) 50 Mcg Tablet 50 Mcg PO DAILYAC 01/14/18 Reported Impression . IMPRESSION: 1. Acute hypoxemic respiratory failure. 2. Left hilar mass. 3. Weight loss. 4. Acute renal failure. 5. Protein malnutrition, present upon admission. 6. Hyponatremia. 7. Elevated INR. Plan . Updated 04/02 Patient with no new symptoms overnight Reviewed risk benefits of bronchoscopy, will proceed with bronchoscopy today. PLAN: We will proceed with a diagnostic bronchoscopy, repeat INR in the a.m. I reviewed the risks, benefits and alternatives with the patient, she has consented. I am concerned that she has some malignancy, she is also having some dysphagia, I will consult GI. It appears on the CT chest that the mass is pressing up against the esophagus. I do appreciate the privilege in sharing in the patient's care. DOC AKBAR MD Apr 02, 2021 08:13
[2021-04-02] MEDS ORDERED: LIDOCAINE 2% VISCOUS 100 ML BOTTLE. ONE (08:19)
[2021-04-02] MEDS ORDERED: EPINEPHrine 1 MG/ML VIAL ONE (08:19)
[2021-04-02] MEDS ORDERED: LIDOCAINE 1% Multi-Dose 20 ML VIAL. ONE (08:19)
[2021-04-02] MEDS ORDERED: LIDOCAINE 4% TOPICAL 50 ML SOLUTION. ONE (08:20)
[2021-04-02] MEDS ORDERED: ALBUTEROL SULFATE 2.5 MG/3 ML NEBU. NEB PRN (08:30)
[2021-04-02] MEDS ORDERED: LIDOCAINE 2% VISCOUS 100 ML BOTTLE. MM PRN (08:30)
[2021-04-02] MEDS ORDERED: LIDOCAINE 1% Multi-Dose 20 ML VIAL. INJ PRN (08:30)
[2021-04-02] MEDS ORDERED: LIDOCAINE 4% TOPICAL 50 ML SOLUTION. MM PRN (08:30)
[2021-04-02] MEDS ORDERED: EPINEPHrine 1 MG/ML VIAL INJ PRN (08:30)
[2021-04-02] MEDS ORDERED: IV RINGERS,LACTATED 1000ML 1,000 ML IV ONE (09:15)
[2021-04-02] MEDS ORDERED: PROPOFOL 10 MG/ML (20ML) VIAL. IV ONE (09:42)
--- NOTE | 2021-04-02 10:05 | PDOC2 ---
GI CONSULT Date of Service: DATE: 04/02/21 TIME: 09:51 Reason For Consult: dysphagia HPI: HPI: Pleasant 70 y/o woman seen earlier this morning on her way to bronchoscopy. Sent to ER per PCP w/ hypoxia and left hilar mass on CT. GI-abraham, she reports difficult swallowing liquids (iced tea, hot tea, soda, and sometimes ice cream). [place] in mid-upper chest frequently (not sure about every time she drinks). Sometimes has to "spit it out." No pain w/ swallowing and no difficulty swallowing solid foods (I specifically asked about bread). Thinks t hese symptoms because in the past few weeks, but also describes feeling weak and fatigued since having pneumonia over the summer. H/o GERD - no longer has typical heartburn/reflux symptoms since gastric sleeve at [facility] (Dr. Rahman) in 2013. Not on any acid-director compensation at home. No dysphagia until recently. Lost >100 pounds but has lost an additional 15 pounds in the past 2 weeks. Some decreased appetite, also gets full quickly. No diarrhea, constipation, n/v/hematemesis, hematochezia, or melena. Abdomen sometimes feels sore from coughing. Reports normal EGD prior to gastric sleeve. Also had colonoscopy at the [facility] at some point in the past, recalled as normal. S/p cholecystectomy. No liver, pancreas, or PUD history. Summary list includes Meloxicam and iron - she denies. PMH: PMH: HTN, pneumonia, hypothyroidism, nephrolithiasis gastric sleeve, cholecystectomy, tonsillectomy, hysterectomy, lithotripsy, knee/ankle/food surgeries Social History: Smoke: No ALCOHOL: none Drugs: None ROS: GEN: +fatigue HEENT: Denies blurred vision, sore throat CV: Denies chest pain RESP: +SOA GI: Per HPI : Denies hematuria, dysuria ENDO: +weight loss NEURO: Denies confusion, dizziness MSK: +weakness SKIN: Denies jaundice, pruritus Vitals: Vitals: Vital Signs Date Time Temp Pulse Resp B/P (MAP) Pulse Ox O2 Delivery O2 Flow Rate FiO2 04/02/21 09:10 98.0 68 20 98 98.0 04/02/21 09:09 Nasal Cannula 2.0 04/02/21 07:00 119/65 (83) Labs: Labs: Laboratory Tests Test 04/01/21 11:45 04/01/21 22:30 04/02/21 03:55 Urine Collection Type Unknown Urine Color Yellow Urine Clarity Cloudy Urine pH 5.0 (<5.0-8.0) Urine Specific [place] 1.015 (1.000-1.030) Urine Protein Negative mg/dL (NEG-TRACE) Urine Glucose (UA) Negative mg/dL (NEG) Urine Ketones (Stick) Negative mg/dL (NEG) Urine Blood Negative (NEG) Urine Nitrite Negative (NEG) Urine Bilirubin Negative (NEG) Urine Urobilinogen Dipstick 0.2 mg/dL (0.2 mg/dL) Urine Leukocyte Esterase Small (NEG) Urine RBC 0 /HPF (0-2) Urine WBC 1-4 /HPF (0-4) Urine Squamous Epithelial Cells Few /LPF Urine Renal Epithelial Cells Few /LPF Urine Bacteria Few /HPF (0-FEW) Urine Mucus Slight /LPF SARS-CoV-2 Antigen (Rapid) Negative (NEGATIVE) Prothrombin Time 17.1 SEC (11.7-14.0) Prothromb Time International Ratio 1.4 (0.8-1.1) Sodium Level 138 mmol/L (136-145) Potassium Level 3.8 mmol/L (3.5-5.1) Chloride Level 103 mmol/L (98-107) Carbon Dioxide Level 25 mmol/L (21-32) Anion Gap 10 (6-14) Blood Urea Nitrogen 71 mg/dL (7-20) Creatinine 3.0 mg/dL (0.6-1.0) Estimated GFR (Cockcroft-Gault) 15.5 Glucose Level 76 mg/dL (70-99) Calcium Level 11.4 mg/dL (8.5-10.1) Phosphorus Level 4.9 mg/dL (2.6-4.7) Albumin 2.0 g/dL (3.4-5.0) URINE CULTURE Final Final LESS THAN 10,000 CFU/ML: GROWTH NOT INDICATIVE OF INFECTION on 04/02/21 at 0851 Unless otherwise specified, Testing Performed by: [address] [address] For Inquires, the Physician may contact the Microbiology department at [phone] Allergies: Coded Allergies: Sulfa (Sulfonamide Antibiotics) (Verified Allergy, Severe, Anaphylaxis, 01/14/18) acetaminophen (Verified Allergy, Intermediate, Rash, 05/09/18) amoxicillin (Verified Allergy, Intermediate, Rash, 05/09/18) buspirone (Verified Allergy, Intermediate, Rash, 05/09/18) carbamazepine (Verified Allergy, Intermediate, Rash, 05/09/18) clavulanic acid (Verified Allergy, Intermediate, Rash, 05/09/18) lithium (Verified Allergy, Intermediate, Rash, 05/09/18) nickel (Verified Allergy, Unknown, Rash, 05/09/18) "skin discoloration" shellfish derived (Verified Adverse Reaction, Severe, Anaphylaxis, 01/14/18) adhesive (Verified Adverse Reaction, Intermediate, Rash, 01/14/18) "OP-SITE" alprazolam (Verified Adverse Reaction, Intermediate, 05/25/18) "run into quiroz" aspartame (Verified Adverse Reaction, Intermediate, 01/14/18) MOUTH BLISTERS/ULCERS hydrocodone (Verified Adverse Reaction, Intermediate, Rash, 01/14/18) kevin (Verified Adverse Reaction, Intermediate, Anaphylaxis, 01/14/18) oxycodone (Verified Adverse Reaction, Intermediate, Rash, 01/14/18) risperidone (Verified Adverse Reaction, Intermediate, 05/25/18) migraines trazodone (Verified Adverse Reaction, Intermediate, 05/25/18) migraines Medications: Current Medications Medications (Trade) Dose Ordered Sig/Haylie Route PRN Reason Start Time Stop Time Status Last Admin Dose Admin Ringer's Solution 1,000 ml @ 75 mls/hr 1X ONCE IV 04/02/21 09:15 04/02/21 22:34 04/02/21 09:14 Imaging: Imaging: Head/C-spine CT Impression: No acute findings. Clinical correlation suggested. Renal US IMPRESSION: 1. Bilateral increased renal cortical echogenicity, which can be seen with medical renal disease. 2. Nonobstructive bilateral renal calculi. 3. Trace left perinephric fluid. CXR Impression: 1. Left perihilar mass is not well characterized on radiographs. 2. Mild linear right basilar atelectasis. PE: GEN: NAD - seen briefly in room and then in WC en route to bronchoscopy w/ transportation HEENT: Atraumatic, PERRL LUNGS: diminished anteriorly w/ NC HEART: RRR ABD: S/ND/NT EXTREMITY: No edema SKIN: No rashes, no jaundice NEURO/PSYCH: A & O 3 A/P: A/P: Hypoxia, lung mass Mild anemia, TENA Dysphagia - only w/ liquids Weight loss, decreased appetite/early satiety H/o GERD S/p gastric sleeve and cholecystectomy CRC screen - reports normal [facility], timing unclear COVID negative -- To me, reports difficultly only w/ liquids. Add PPI and monitor from GI standpoint - okay to eat. Will check anemia parameters for completeness. Continue per pulmonology and nephrology. SHAYY NICHOLSON Apr 02, 2021 10:05
--- NOTE | 2021-04-02 10:24 | PDOC ---
DATE OF SERVICE DATE: 04/02/21 TIME: 10:22 SUBJECTIVE ROS feeling better today Now s/p Bronch OBJECTIVE Vital Signs Vital Signs Date Time Temp Pulse Resp B/P (MAP) Pulse Ox O2 Delivery O2 Flow Rate FiO2 04/02/21 09:10 98.0 68 20 98 98.0 04/02/21 09:09 Nasal Cannula 2.0 04/02/21 07:00 119/65 (83) I & 0 Intake and Output 04/02/21 07:00 Intake Total 610 ml Output Total 550 ml Balance 60 ml Intake Oral 610 ml Output Urine Total 550 ml # Voids 8 PHYSICAL EXAM Physical Exam General NAD HEEN OM moist, On 2 Lt O2 by NC Neck Supple Lungs Decreased at bases, Non labored CV s1s2 Abd Soft, NT No Alaniz, No CVA or SP tenderness Ext trace LE edema Rt LE edema Neuro Grossly Normal Psych Cooperative Derm no rash, No jaundice Vital Signs Vital Signs Date Time Temp Pulse Resp B/P (MAP) Pulse Ox O2 Delivery O2 Flow Rate FiO2 04/01/21 08:12 Nasal Cannula 2.0 04/01/21 07:00 98.1 78 16 118/63 (81) 95 98.1 DIAGNOSIS/ASSESSMENT Assessment & Plan TENA - No interval baseline labs available to me since 2019 ; suspect ATN / Dizziness at home .Renal US reviewed, UA unremarkable , Cr trending down continue IVF Strict I/O , daily labs Renal US Bilateral increased renal cortical echogenicity, which can be seen with medical renal disease. Supportive care, Maintain Hydration, Monitor daily labs , avoid nephrotoxins. Obtain records/Previous labs from [place] (recent labs in Feb per patient) Nephrolithiasis - Nonobstructive bilateral renal calculi on US . No Hydronephrosis . mild perinephric fluid . Has significant history of kidney stones- 2018 and 2019 required Intervention. Nonce since then HTN - AT home on ARB and Thiazide ; Currently BP's Lower . Hold both Ac Resp failure- Presented with Hypoxia, Low o2 sats at Home as well Lung Mass on Ct scan /Hypoxic . Plan for Bronch ? GERD - per primary Had extensive discussion with patient and friend at bedside . Josafat RN COMMENT/RELEVANT DATA Meds Current Medications Medications (Trade) Dose Ordered Sig/Haylie Start Time Stop Time Status Last Admin Dose Admin Albuterol Sulfate (Ventolin Neb Soln) 2.5 mg PRN 1X PRN 04/02/21 08:30 12/16/21 08:29 Epinephrine HCl (Adrenalin) 1 mg STK-MED ONCE 04/02/21 08:19 04/02/21 08:20 DC Hydroxyzine HCl (Atarax) 25 mg PRN Q6HRS PRN 03/31/21 20:45 Levothyroxine Sodium (Synthroid) 50 mcg DAILYAC 04/01/21 07:30 04/01/21 08:23 50 MCG Lidocaine HCl (Lidocaine 1% 20ml Vial) 20 ml STK-MED ONCE 04/02/21 08:19 04/02/21 08:20 DC Lidocaine HCl (Lidocaine 2% Viscous) 100 ml STK-MED ONCE 04/02/21 08:19 04/02/21 08:20 DC Lidocaine HCl (Lidocaine 4% Topical) 50 ml STK-MED ONCE 04/02/21 08:20 04/02/21 08:20 DC Ondansetron HCl (Zofran) 4 mg PRN Q8HRS PRN 03/31/21 19:30 04/01/21 19:29 DC Pantoprazole Sodium (Protonix) 40 mg DAILYAC 04/02/21 10:30 Propofol (Diprivan) 200 mg STK-MED ONCE 04/02/21 09:42 04/02/21 09:42 DC Ringer's Solution 1,000 ml @ 75 mls/hr 1X ONCE 04/02/21 09:15 04/02/21 22:34 04/02/21 09:14 75 MLS/HR Sodium Chloride 1,000 ml @ 125 mls/hr 1X ONCE 03/31/21 19:30 04/01/21 03:29 DC 04/01/21 04:15 125 MLS/HR Tramadol HCl (Ultram) 50 mg PRN Q4HRS PRN 03/31/21 20:45 04/01/21 19:11 50 MG Lab Laboratory Tests Test 04/01/21 11:45 04/01/21 22:30 04/02/21 03:55 Urine Collection Type Unknown Urine Color Yellow Urine Clarity Cloudy Urine pH 5.0 (<5.0-8.0) Urine Specific [place] 1.015 (1.000-1.030) Urine Protein Negative mg/dL (NEG-TRACE) Urine Glucose (UA) Negative mg/dL (NEG) Urine Ketones (Stick) Negative mg/dL (NEG) Urine Blood Negative (NEG) Urine Nitrite Negative (NEG) Urine Bilirubin Negative (NEG) Urine Urobilinogen Dipstick 0.2 mg/dL (0.2 mg/dL) Urine Leukocyte Esterase Small (NEG) Urine RBC 0 /HPF (0-2) Urine WBC 1-4 /HPF (0-4) Urine Squamous Epithelial Cells Few /LPF Urine Renal Epithelial Cells Few /LPF Urine Bacteria Few /HPF (0-FEW) Urine Mucus Slight /LPF SARS-CoV-2 Antigen (Rapid) Negative (NEGATIVE) Prothrombin Time 17.1 SEC (11.7-14.0) Prothromb Time International Ratio 1.4 (0.8-1.1) Sodium Level 138 mmol/L (136-145) Potassium Level 3.8 mmol/L (3.5-5.1) Chloride Level 103 mmol/L (98-107) Carbon Dioxide Level 25 mmol/L (21-32) Anion Gap 10 (6-14) Blood Urea Nitrogen 71 mg/dL (7-20) Creatinine 3.0 mg/dL (0.6-1.0) Estimated GFR (Cockcroft-Gault) 15.5 Glucose Level 76 mg/dL (70-99) Calcium Level 11.4 mg/dL (8.5-10.1) Phosphorus Level 4.9 mg/dL (2.6-4.7) Albumin 2.0 g/dL (3.4-5.0) Results All relevant outside records, renal labs, imaging studies, telemetry/EKG's were reviewed. Justicifation of Admission Dx: Justifications for Admission: Justification of Admission Dx: N/A MARY ODEN MD Apr 02, 2021 10:24
--- NOTE | 2021-04-02 12:01 | PDOC ---
[facility] [facility] PROGRESS NOTE Date of Service DOS: DATE: 04/02/21 TIME: 11:59 Chief Complaint Chief Complaint acute renal failure acute vasomotor nephropathy, but not improving, poss ESRD, or CKD4, renal following, hypoxia, NOS, on home oxygen without known diagnosis anxiety disorder, chronic OA pain new 5.7 cm spiculated lung mass, likely cancerous prior obesity, has gastric sleeve.\ many drug allergies History of Present Illness History of Present Illness weaknes, will have pt and OT eval restarr the IV fluid, on 24 hour urine now, renal following she feels better bronch today PO intake better cont other, she feels improved, feels like her breathing is better Vitals/I&O Vitals/I&O: Vital Signs Date Time Temp Pulse Resp B/P (MAP) Pulse Ox O2 Delivery O2 Flow Rate FiO2 04/02/21 10:43 84 18 134/60 95 Nasal Cannula 3 04/02/21 10:27 98.0 98.0 I & O 04/01/21 04/01/21 04/02/21 15:00 23:00 07:00 Intake Total 360 ml 250 ml Output Total 200 ml 350 ml Balance -200 ml 360 ml -100 ml Physical Exam General: Alert, Cooperative, No acute distress Abdomen: Soft Extremities: No cyanosis, No edema, Normal pulses Labs Labs: Laboratory Tests Test 04/01/21 22:30 04/02/21 03:55 SARS-CoV-2 RNA (DORINDA) Negative (Negative) SARS-CoV-2 Antigen (Rapid) Negative (NEGATIVE) Prothrombin Time 17.1 SEC (11.7-14.0) Prothromb Time International Ratio 1.4 (0.8-1.1) Sodium Level 138 mmol/L (136-145) Potassium Level 3.8 mmol/L (3.5-5.1) Chloride Level 103 mmol/L (98-107) Carbon Dioxide Level 25 mmol/L (21-32) Anion Gap 10 (6-14) Blood Urea Nitrogen 71 mg/dL (7-20) Creatinine 3.0 mg/dL (0.6-1.0) Estimated GFR (Cockcroft-Gault) 15.5 Glucose Level 76 mg/dL (70-99) Calcium Level 11.4 mg/dL (8.5-10.1) Phosphorus Level 4.9 mg/dL (2.6-4.7) Iron Level 38 ug/dL (50-170) Total Iron Binding Capacity 110 ug/dL (250-450) Iron Saturation 35 % (15-34) Albumin 2.0 g/dL (3.4-5.0) Vitamin B12 Level 1483 pg/mL (247-911) Assessment and Plan Assessmemt and Plan Problems Medical Problems: (1) Acute renal failure Status: Acute (2) Bronchogenic carcinoma Status: Acute (3) Cough Status: Acute (4) Fall from standing Status: Acute (5) Low back pain Status: Acute (6) Shortness of breath Status: Acute Comment Review of Relevant I have reviewed the following items isidro (where applicable) has been applied. Medications: Current Medications Medications (Trade) Dose Ordered Sig/Haylie Route PRN Reason Start Time Stop Time Status Last Admin Dose Admin Albuterol Sulfate (Ventolin Neb Soln) 2.5 mg PRN 1X PRN NEB SHORTNESS OF BREATH 04/02/21 08:30 04/03/21 08:29 04/02/21 09:45 Lidocaine HCl (Lidocaine 2% Viscous) 100 ml PRN 1X PRN MM FOR PROCEDURE 04/02/21 08:30 04/03/21 08:29 04/02/21 09:45 Lidocaine HCl (Lidocaine 1% 20ml Vial) 20 ml PRN 1X PRN INJ SEE COMMENTS 04/02/21 08:30 04/03/21 08:29 04/02/21 09:40 Lidocaine HCl (Lidocaine 4% Topical) 50 ml PRN 1X PRN MM SEE COMMENTS 04/02/21 08:30 04/03/21 08:29 04/02/21 09:45 Ringer's Solution 1,000 ml @ 75 mls/hr 1X ONCE IV 04/02/21 09:15 04/02/21 22:34 04/02/21 09:14 Justifications for Admission Other Justification JANNY WILSON MD Apr 02, 2021 12:01
[2021-04-02] MEDS: PANTOPRAZOLE 40 MG TABLET.DR. PO SCH (12:39)
[2021-04-02] MEDS: IV RINGERS,LACTATED 1000ML 1,000 ML IV SCH (12:41)
--- NOTE | 2021-04-02 15:46 | PDOC4 ---
Procedure Note: ICD 10 Code: ICD 10 Code: Bronchoscopy, bronchoalveolar lavage, Mendoza needle aspiration of ragini on the left Procedure Note: Procedure:B Bronchoscopy, bronchoalveolar lavage, 1 needle aspiration of the ragini on the left Indication: patient presented with large left-sided perihilar mass, undergoing a diagnostic bronchoscopy, reviewed risk benefits alternatives to procedure patient consented. Sedation: See anesthesia's notes Description: Patient sedated with anesthesia's assistance. Vital signs and O2 saturations were maintained normal throughout the procedure. The bronchoscope was passed through the right nares. The vocal cords were identified and moving bilaterally without any dysfunction. The vocal cords were anesthetized with a total of 5 cc of 4% lidocaine. The bronchoscope was passed through the vocal cords into the proximal trachea which was normal. The distal trachea was likewise normal. The right and segments and subsegments were well visualized there was no endobronchial lesions. The bronchoscope was passed through the left side. There was abnormality of the ragini between the left upper lobe and left lower lobe. Fine-needle aspiration was performed x2. A lavage of that area was performed. The patient tolerated procedure well no immediate complications. Findings: 1. Normal vocal cords 2. No endobronchial lesion seen on the right side or left side 3. Mucosal abnormality, and splaying of the ragini between the left upper lobe and left lower lobe. Multiple needle aspirations were performed. We will await the results of the needle aspiration and BAL. Patient tolerated procedure well. DOC AKBAR MD Apr 02, 2021 15:46
[2021-04-03 02:36] VITALS: BP 118/61
[2021-04-03 07:00] VITALS: BP 126/62
[2021-04-03 07:39] LABS: CALCIUM 10.9 mg/dL (8.5-10.1); CREATININE 2.5 mg/dL (0.6-1.0); GFR 19.2; POTASSIUM 3.8 mmol/L (3.5-5.1)
[2021-04-03] MEDS: IV RINGERS,LACTATED 1000ML 1,000 ML IV SCH ×3 (08:00→22:05)
[2021-04-03] MEDS: PANTOPRAZOLE 40 MG TABLET.DR. PO SCH (08:10)
[2021-04-03] MEDS: LEVOTHYROXINE 50 MCG TABLET PO SCH (08:10)
--- NOTE | 2021-04-03 08:35 | PDOC ---
PULMONARY PROGRESS NOTES DATE: 04/03/21 TIME: 08:35 Subjective Patient feels better, her strength is returning, no hemoptysis. Vitals Vital Signs Date Time Temp Pulse Resp B/P (MAP) Pulse Ox O2 Delivery O2 Flow Rate FiO2 04/03/21 07:00 98.2 66 18 126/62 (83) 97 Room Air 98.2 04/03/21 02:36 2.0 ROS: No Nausea, No Chest Pain, No Abdominal Pain, No Increase Cough General: Alert Lungs: Clear Cardiovascular: S1, S2 Abdomen: Soft Neuro Exam: Alert Extremities: No Edema Skin: Warm Labs Laboratory Tests Test 04/01/21 11:45 04/01/21 22:30 04/02/21 03:55 04/03/21 06:20 Urine Collection Type Unknown Urine Color Yellow Urine Clarity Cloudy Urine pH 5.0 (<5.0-8.0) Urine Specific [place] 1.015 (1.000-1.030) Urine Protein Negative mg/dL (NEG-TRACE) Urine Glucose (UA) Negative mg/dL (NEG) Urine Ketones (Stick) Negative mg/dL (NEG) Urine Blood Negative (NEG) Urine Nitrite Negative (NEG) Urine Bilirubin Negative (NEG) Urine Urobilinogen Dipstick 0.2 mg/dL (0.2 mg/dL) Urine Leukocyte Esterase Small (NEG) Urine RBC 0 /HPF (0-2) Urine WBC 1-4 /HPF (0-4) Urine Squamous Epithelial Cells Few /LPF Urine Renal Epithelial Cells Few /LPF Urine Bacteria Few /HPF (0-FEW) Urine Mucus Slight /LPF SARS-CoV-2 RNA (DORINDA) Negative (Negative) SARS-CoV-2 Antigen (Rapid) Negative (NEGATIVE) Prothrombin Time 17.1 SEC (11.7-14.0) Prothromb Time International Ratio 1.4 (0.8-1.1) Sodium Level 138 mmol/L (136-145) 137 mmol/L (136-145) Potassium Level 3.8 mmol/L (3.5-5.1) 3.8 mmol/L (3.5-5.1) Chloride Level 103 mmol/L (98-107) 104 mmol/L (98-107) Carbon Dioxide Level 25 mmol/L (21-32) 26 mmol/L (21-32) Anion Gap 10 (6-14) 7 (6-14) Blood Urea Nitrogen 71 mg/dL (7-20) 58 mg/dL (7-20) Creatinine 3.0 mg/dL (0.6-1.0) 2.5 mg/dL (0.6-1.0) Estimated GFR (Cockcroft-Gault) 15.5 19.2 Glucose Level 76 mg/dL (70-99) 74 mg/dL (70-99) Calcium Level 11.4 mg/dL (8.5-10.1) 10.9 mg/dL (8.5-10.1) Phosphorus Level 4.9 mg/dL (2.6-4.7) Iron Level 38 ug/dL (50-170) Total Iron Binding Capacity 110 ug/dL (250-450) Iron Saturation 35 % (15-34) Albumin 2.0 g/dL (3.4-5.0) Vitamin B12 Level 1483 pg/mL (247-911) Laboratory Tests Test 04/03/21 06:20 Sodium Level 137 mmol/L (136-145) Potassium Level 3.8 mmol/L (3.5-5.1) Chloride Level 104 mmol/L (98-107) Carbon Dioxide Level 26 mmol/L (21-32) Anion Gap 7 (6-14) Blood Urea Nitrogen 58 mg/dL (7-20) Creatinine 2.5 mg/dL (0.6-1.0) Estimated GFR (Cockcroft-Gault) 19.2 Glucose Level 74 mg/dL (70-99) Calcium Level 10.9 mg/dL (8.5-10.1) Medications Active Scripts Medications Dose Route/Sig Max Daily Dose Days Date Category Dose Instructions Meloxicam 7.5 Mg Tablet 7.5 Mg PO BID 30 05/27/18 Rx Tramadol Hcl 50 Mg Tablet 50 Mg PO PRN Q4HRS PRN MDD 600 mg 14 05/27/18 Rx Tramadol 50 mg Take one or two tablets every four hours, as needed for pain. Losartan-Hctz 100-12.5 Mg Tab (Losartan/Hydrochlorothiazide) 1 Each Tablet 1 Each PO DAILY 05/24/18 Reported Vitamin D (Cholecalciferol (Vitamin D3)) 2,000 Unit Capsule 5,000 Unit PO DAILY 05/09/18 Reported Hydroxyzine Hcl 25 Mg Tablet 25 Mg PO QID 05/09/18 Reported Ferrous Sulfate 325 Mg Tablet 1 Tab PO DAILY 30 02/11/18 Reported Tramadol Hcl 50 Mg Tablet 1-2 Tab PO Q4-6HRS PRN 02/11/18 Reported Tablet (Pnv Cmb#95/Ferrous Fumarate/Fa) 1 Each Tablet 1 Each PO DAILY 01/14/18 Reported Multivitamins (Multivitamin) 1 Each Tablet 1 Each PO DAILY 01/14/18 Reported Synthroid (Levothyroxine Sodium) 50 Mcg Tablet 50 Mcg PO DAILYAC 01/14/18 Reported Impression . IMPRESSION: 1. Acute hypoxemic respiratory failure. 2. Left hilar mass. Status post bronchoscopy 3. Weight loss. 4. Acute renal failure. 5. Protein malnutrition, present upon admission. 6. Hyponatremia. 7. Elevated INR. 8. Status post bronchoscopy, no endobronchial lesion mucosal abnormality of the ragini between the left upper lobe and left lower lobe Plan . Updated 04/03 Discussed with pathologist Awaiting final cytology report Continue current support Discussed with patient We will consult oncology to establish visit. DOC AKBAR MD Apr 03, 2021 08:35
--- NOTE | 2021-04-03 10:01 | PDOC ---
DATE OF SERVICE DATE: 04/03/21 TIME: 09:58 SUBJECTIVE ROS feeling better today No complaints , denies N/V OBJECTIVE Vital Signs Vital Signs Date Time Temp Pulse Resp B/P (MAP) Pulse Ox O2 Delivery O2 Flow Rate FiO2 04/03/21 08:00 Nasal Cannula 2.0 04/03/21 07:00 98.2 66 18 126/62 (83) 97 98.2 I & 0 Intake and Output 04/03/21 07:00 Intake Total 600 ml Output Total 900 ml Balance -300 ml Intake Oral 0 ml IV Total 600 ml Output Urine Total 900 ml # Voids 3 PHYSICAL EXAM Physical Exam General NAD HEEN OM moist, On 2 Lt O2 by NC Neck Supple Lungs Decreased at bases, Non labored CV s1s2 Abd Soft, NT No Alaniz, No CVA or SP tenderness Ext trace LE edema Rt LE edema Neuro Grossly Normal Psych Cooperative Derm no rash, No jaundice DIAGNOSIS/ASSESSMENT Assessment & Plan TENA - ATN .Renal US reviewed, UA unremarkable , Cr trending down maintain hydration Strict I/O , daily labs Renal US Bilateral increased renal cortical echogenicity, which can be seen with medical renal disease. Supportive care, Maintain Hydration, Monitor daily labs , avoid nephrotoxins. No interval baseline labs available to me since 2019 Obtain records/Previous labs [facility] (recent labs in Nov per patient) Nephrolithiasis - Nonobstructive bilateral renal calculi on US . No Hydronephrosis . mild perinephric fluid . Has significant history of kidney stones- 2018 and 2019 required Intervention. Nonce since then HTN - AT home on ARB and Thiazide ; Currently BP's Lower . Hold both Ac Resp failure- Presented with Hypoxia, Low o2 sats at Home as well Lung Mass on Ct scan /Hypoxic - Lt Hilar mass . S/P Diagnostic Bronch on 04/02 GERD - severe symptoms per pt. Defer to primary COMMENT/RELEVANT DATA Meds Current Medications Medications (Trade) Dose Ordered Sig/Haylie Start Time Stop Time Status Last Admin Dose Admin Albuterol Sulfate (Ventolin Neb Soln) 2.5 mg PRN 1X PRN 04/02/21 08:30 04/03/21 08:29 DC 04/02/21 09:45 2.5 MG Epinephrine HCl (Adrenalin) 1 mg STK-MED ONCE 04/02/21 08:19 04/02/21 08:20 DC Hydroxyzine HCl (Atarax) 25 mg PRN Q6HRS PRN 03/31/21 20:45 Levothyroxine Sodium (Synthroid) 50 mcg DAILYAC 04/01/21 07:30 04/03/21 08:10 50 MCG Lidocaine HCl (Lidocaine 1% 20ml Vial) 20 ml STK-MED ONCE 04/02/21 08:19 04/02/21 08:20 DC Lidocaine HCl (Lidocaine 2% Viscous) 100 ml STK-MED ONCE 04/02/21 08:19 04/02/21 08:20 DC Lidocaine HCl (Lidocaine 4% Topical) 50 ml STK-MED ONCE 04/02/21 08:20 04/02/21 08:20 DC Ondansetron HCl (Zofran) 4 mg PRN Q8HRS PRN 03/31/21 19:30 04/01/21 19:29 DC Pantoprazole Sodium (Protonix) 40 mg DAILYAC 04/02/21 10:30 04/03/21 08:10 40 MG Propofol (Diprivan) 200 mg STK-MED ONCE 04/02/21 09:42 04/02/21 09:42 DC Ringer's Solution 1,000 ml @ 100 mls/hr Q10H 04/02/21 12:00 04/03/21 08:00 100 MLS/HR Sodium Chloride 1,000 ml @ 125 mls/hr 1X ONCE 03/31/21 19:30 04/01/21 03:29 DC 04/01/21 04:15 125 MLS/HR Tramadol HCl (Ultram) 50 mg PRN Q4HRS PRN 03/31/21 20:45 04/01/21 19:11 50 MG Lab Laboratory Tests Test 04/03/21 06:20 Sodium Level 137 mmol/L (136-145) Potassium Level 3.8 mmol/L (3.5-5.1) Chloride Level 104 mmol/L (98-107) Carbon Dioxide Level 26 mmol/L (21-32) Anion Gap 7 (6-14) Blood Urea Nitrogen 58 mg/dL (7-20) Creatinine 2.5 mg/dL (0.6-1.0) Estimated GFR (Cockcroft-Gault) 19.2 Glucose Level 74 mg/dL (70-99) Calcium Level 10.9 mg/dL (8.5-10.1) Results All relevant outside records, renal labs, imaging studies, telemetry/EKG's were reviewed. Justicifation of Admission Dx: Justifications for Admission: Justification of Admission Dx: N/A MARY ODEN MD Apr 03, 2021 10:01
--- NOTE | 2021-04-03 10:52 | PDOC ---
Date of Service: DATE: 04/03/21 TIME: 10:47 Subjective: Subjective: Thinks whatever pill was started yesterday really helped. No swallowing issues - now describes previous issues as "hurting when it was hot of cold liquid" - but no pain now and again says never issues w/ solids. Says someone asked if she was going to have an EGD but also she might go home tomorrow. She is cooking the holiday meal for 13 people and this is the first time in a long time they've all been together. Objective: Vital Signs: Vital Signs Date Time Temp Pulse Resp B/P (MAP) Pulse Ox O2 Delivery O2 Flow Rate FiO2 04/03/21 08:00 Nasal Cannula 2.0 04/03/21 07:00 98.2 66 18 126/62 (83) 97 98.2 Labs: Laboratory Tests Test 04/03/21 06:20 Sodium Level 137 mmol/L Potassium Level 3.8 mmol/L Chloride Level 104 mmol/L Carbon Dioxide Level 26 mmol/L Anion Gap 7 Blood Urea Nitrogen 58 mg/dL Creatinine 2.5 mg/dL Estimated GFR (Cockcroft-Gault) 19.2 Glucose Level 74 mg/dL Calcium Level 10.9 mg/dL GRAM STAIN EVALUATION Final Final NO ORGANISMS SEEN. RBC:MANY SQUAMOUS EPI CELL:NONE SEEN PMN (WBCs):RARE Unless otherwise specified, Testing Performed by: [address] [id number] For Inquires, the Physician may contact the Microbiology department at [phone] RESPIRATORY CULTURE Preliminary Preliminary FEW Mixed upper respiratory tali on 04/03/21 at 1011 Unless otherwise specified, Testing Performed by: [address] [id number] For Inquires, the Physician may contact the Microbiology department at [phone] Imaging: Bronch 04/02 Findings: 1. Normal vocal cords 2. No endobronchial lesion seen on the right side or left side 3. Mucosal abnormality, and splaying of the ragini between the left upper lobe and left lower lobe. Multiple needle aspirations were performed. PE: GEN: NAD, sitting on edge of bed LUNGS: diminished, has NC HEART: RRR ABD: S/ND/NT NEURO/PSYCH: A & O 3, talkative A/P: Hypoxia, lung mass - s/p bronch ACD, TENA Dysphagia (?odynophagia) w/ liquids - resolved H/o GERD and gastric sleeve COVID negative -- No swallowing issues today. Continue PPI and observe from GI standpoint. Justicifation of Admission Dx: Justifications for Admission: Justification of Admission Dx: N/A SHAYY NICHOLSON Apr 03, 2021 10:52
[2021-04-03 11:00] VITALS: BP 112/68
[2021-04-03] MEDS: cefTRIAXone IV Push 1 GM VIAL. IVP SCH (12:25)
[2021-04-03 14:53] VITALS: BP 134/72
--- NOTE | 2021-04-03 17:06 | PDOC ---
[employer] [facility] PROGRESS NOTE Date of Service DOS: DATE: 04/03/21 TIME: 17:04 Chief Complaint Chief Complaint acute renal failure acute vasomotor nephropathy, but not improving, poss ESRD, or CKD4, renal following, hypoxia, NOS, on home oxygen without known diagnosis anxiety disorder, chronic OA pain new 5.7 cm spiculated lung mass, likely cancerous prior obesity, has gastric sleeve.\ many drug allergies History of Present Illness History of Present Illness she feels much better, reports feeling better each day renal fxn still poor, but creatinine improving daily cont the IV fluid, 100/hr, s/p 24 hour urine , renal following she feels better s/p bronch and biopsy, OK to DC for pulm issues will cont to hydrate and plan to DC tomorrow, ,she wound like to be home for the weekend, family reunion planned, PO intake better Vitals/I&O Vitals/I&O: Vital Signs Date Time Temp Pulse Resp B/P (MAP) Pulse Ox O2 Delivery O2 Flow Rate FiO2 04/03/21 14:53 97.9 68 18 134/72 (92) 97 Room Air 97.9 04/03/21 08:00 2.0 I & O 04/02/21 04/02/21 04/03/21 15:00 23:00 07:00 Intake Total 600 ml Output Total 600 ml 300 ml Balance 600 ml -600 ml -300 ml Physical Exam Physical Exam: str better, General: Alert, Oriented X3, Cooperative, No acute distress Lungs: Clear Abdomen: Normal bowel sounds, Soft Extremities: No cyanosis, No edema, Normal pulses Labs Labs: Laboratory Tests Test 04/03/21 06:20 Sodium Level 137 mmol/L (136-145) Potassium Level 3.8 mmol/L (3.5-5.1) Chloride Level 104 mmol/L (98-107) Carbon Dioxide Level 26 mmol/L (21-32) Anion Gap 7 (6-14) Blood Urea Nitrogen 58 mg/dL (7-20) Creatinine 2.5 mg/dL (0.6-1.0) Estimated GFR (Cockcroft-Gault) 19.2 Glucose Level 74 mg/dL (70-99) Calcium Level 10.9 mg/dL (8.5-10.1) Assessment and Plan Assessmemt and Plan Problems Medical Problems: (1) Acute renal failure Status: Acute (2) Bronchogenic carcinoma Status: Acute (3) Cough Status: Acute (4) Fall from standing Status: Acute (5) Low back pain Status: Acute (6) Shortness of breath Status: Acute Comment Review of Relevant I have reviewed the following items isidro (where applicable) has been applied. Medications: Current Medications Medications (Trade) Dose Ordered Sig/Haylie Route PRN Reason Start Time Stop Time Status Last Admin Dose Admin Ceftriaxone Sodium (Rocephin) 1 gm Q24H IVP 04/03/21 13:00 04/03/21 12:25 Justifications for Admission Other Justification JANNY WILSON MD Apr 03, 2021 17:06
[2021-04-03 23:27] VITALS: BP 126/58
[2021-04-04 02:50] VITALS: BP 134/69
[2021-04-04 05:55] LABS: CALCIUM 10.9 mg/dL (8.5-10.1); CREATININE 2.3 mg/dL (0.6-1.0); GFR 21.1; POTASSIUM 3.6 mmol/L (3.5-5.1)
[2021-04-04 07:00] VITALS: BP 105/63
--- NOTE | 2021-04-04 08:15 | PDOC ---
PULMONARY PROGRESS NOTES DATE: 04/04/21 TIME: 08:15 Subjective Patient feels better, her strength is returning, no hemoptysis. Vitals Vital Signs Date Time Temp Pulse Resp B/P (MAP) Pulse Ox O2 Delivery O2 Flow Rate FiO2 04/04/21 07:00 97.3 64 18 105/63 (77) 99 Room Air 97.3 04/03/21 23:27 2.0 ROS: No Nausea, No Chest Pain, No Abdominal Pain, No Increase Cough General: Alert Lungs: Clear Cardiovascular: S1, S2 Abdomen: Soft Neuro Exam: Alert Extremities: No Edema Skin: Warm Labs Laboratory Tests Test 04/02/21 11:30 04/03/21 06:20 04/04/21 04:15 Legionella species (PCR) Not detected (Not Detected) Legionella pneumophila DNA (PCR) Not detected (Not Detected) Sodium Level 137 mmol/L (136-145) 138 mmol/L (136-145) Potassium Level 3.8 mmol/L (3.5-5.1) 3.6 mmol/L (3.5-5.1) Chloride Level 104 mmol/L (98-107) 104 mmol/L (98-107) Carbon Dioxide Level 26 mmol/L (21-32) 25 mmol/L (21-32) Anion Gap 7 (6-14) 9 (6-14) Blood Urea Nitrogen 58 mg/dL (7-20) 49 mg/dL (7-20) Creatinine 2.5 mg/dL (0.6-1.0) 2.3 mg/dL (0.6-1.0) Estimated GFR (Cockcroft-Gault) 19.2 21.1 Glucose Level 74 mg/dL (70-99) 81 mg/dL (70-99) Calcium Level 10.9 mg/dL (8.5-10.1) 10.9 mg/dL (8.5-10.1) Laboratory Tests Test 04/04/21 04:15 Sodium Level 138 mmol/L (136-145) Potassium Level 3.6 mmol/L (3.5-5.1) Chloride Level 104 mmol/L (98-107) Carbon Dioxide Level 25 mmol/L (21-32) Anion Gap 9 (6-14) Blood Urea Nitrogen 49 mg/dL (7-20) Creatinine 2.3 mg/dL (0.6-1.0) Estimated GFR (Cockcroft-Gault) 21.1 Glucose Level 81 mg/dL (70-99) Calcium Level 10.9 mg/dL (8.5-10.1) Medications Active Scripts Medications Dose Route/Sig Max Daily Dose Days Date Category Dose Instructions Meloxicam 7.5 Mg Tablet 7.5 Mg PO BID 30 05/27/18 Rx Tramadol Hcl 50 Mg Tablet 50 Mg PO PRN Q4HRS PRN MDD 600 mg 14 05/27/18 Rx Tramadol 50 mg Take one or two tablets every four hours, as needed for pain. Losartan-Hctz 100-12.5 Mg Tab (Losartan/Hydrochlorothiazide) 1 Each Tablet 1 Each PO DAILY 05/24/18 Reported Vitamin D (Cholecalciferol (Vitamin D3)) 2,000 Unit Capsule 5,000 Unit PO DAILY 05/09/18 Reported Hydroxyzine Hcl 25 Mg Tablet 25 Mg PO QID 05/09/18 Reported Ferrous Sulfate 325 Mg Tablet 1 Tab PO DAILY 30 02/11/18 Reported Tramadol Hcl 50 Mg Tablet 1-2 Tab PO Q4-6HRS PRN 02/11/18 Reported Tablet (Pnv Cmb#95/Ferrous Fumarate/Fa) 1 Each Tablet 1 Each PO DAILY 01/14/18 Reported Multivitamins (Multivitamin) 1 Each Tablet 1 Each PO DAILY 01/14/18 Reported Synthroid (Levothyroxine Sodium) 50 Mcg Tablet 50 Mcg PO DAILYAC 01/14/18 Reported Impression . IMPRESSION: 1. Acute hypoxemic respiratory failure. 2. Left hilar mass. Status post bronchoscopy 3. Weight loss. 4. Acute renal failure. 5. Protein malnutrition, present upon admission. 6. Hyponatremia. 7. Elevated INR. 8. Status post bronchoscopy, no endobronchial lesion mucosal abnormality of the ragini between the left upper lobe and left lower lobe Plan . Updated 04/03 Discussed with pathologist Awaiting final cytology report Continue current support Discussed with patient We will consult oncology to establish visit. DOC AKBAR MD Apr 04, 2021 08:15
[2021-04-04] MEDS: PANTOPRAZOLE 40 MG TABLET.DR. PO SCH (08:28)
[2021-04-04] MEDS: LEVOTHYROXINE 50 MCG TABLET PO SCH (08:28)
--- NOTE | 2021-04-04 09:41 | PDOC ---
DATE OF SERVICE DATE: 04/04/21 TIME: 09:39 SUBJECTIVE ROS feeling better today denies N/V Has some LE edema , No sob OBJECTIVE Vital Signs Vital Signs Date Time Temp Pulse Resp B/P (MAP) Pulse Ox O2 Delivery O2 Flow Rate FiO2 04/04/21 07:00 97.3 64 18 105/63 (77) 99 Room Air 97.3 04/03/21 23:27 2.0 I & 0 Intake and Output 04/04/21 07:00 Intake Total 480 ml Balance 480 ml Intake Oral 480 ml # Voids 3 PHYSICAL EXAM Physical Exam General NAD HEEN OM moist, On 2 Lt O2 by NC Neck Supple Lungs Decreased at bases, Non labored CV s1s2 Abd Soft, NT No Alaniz, No CVA or SP tenderness Ext trace LE edema Rt LE edema Neuro Grossly Normal Psych Cooperative Derm no rash, No jaundice DIAGNOSIS/ASSESSMENT Assessment & Plan TENA - ATN .Renal US reviewed, UA unremarkable , Cr trending down . Hold ARB Renal US Bilateral increased renal cortical echogenicity, which can be seen with medical renal disease. Supportive care, Maintain fluid balance avoid nephrotoxins. Follow up with us after dc (in 4-6 weeks) or nephrology at [facility] . FU Labs with PCP next week No interval baseline labs available to me since 2019 . Records/Previous labs from [place] not obtained (recent labs in Nov per patient) Nephrolithiasis - Nonobstructive bilateral renal calculi on US . No Hydronephrosis . mild perinephric fluid . UA unremarkable Has significant history of kidney stones- 2018 and 2019 required Intervention. Nonce since then HTN - AT home on ARB and Thiazide ; Currently BP's Lower . Hold both Ac Resp failure- Presented with Hypoxia, Low o2 sats at Home as well Lung Mass on Ct scan /Hypoxic - Lt Hilar mass . S/P Diagnostic Bronch on 04/02 GERD - severe symptoms per pt. On PPI, feeling better Edema- Lower Ext. Check weight qd, MAINTAIN LOG If persistent will need to be evaluated and treated COMMENT/RELEVANT DATA Meds Current Medications Medications (Trade) Dose Ordered Sig/Haylie Start Time Stop Time Status Last Admin Dose Admin Albuterol Sulfate (Ventolin Neb Soln) 2.5 mg PRN 1X PRN 04/02/21 08:30 04/03/21 08:29 DC 04/02/21 09:45 2.5 MG Ceftriaxone Sodium (Rocephin) 1 gm Q24H 04/03/21 13:00 04/03/21 12:25 1 GM Epinephrine HCl (Adrenalin) 1 mg STK-MED ONCE 04/02/21 08:19 04/02/21 08:20 DC Hydroxyzine HCl (Atarax) 25 mg PRN Q6HRS PRN 03/31/21 20:45 Levothyroxine Sodium (Synthroid) 50 mcg DAILYAC 04/01/21 07:30 04/04/21 08:28 50 MCG Lidocaine HCl (Lidocaine 1% 20ml Vial) 20 ml STK-MED ONCE 04/02/21 08:19 04/02/21 08:20 DC Lidocaine HCl (Lidocaine 2% Viscous) 100 ml STK-MED ONCE 04/02/21 08:19 04/02/21 08:20 DC Lidocaine HCl (Lidocaine 4% Topical) 50 ml STK-MED ONCE 04/02/21 08:20 04/02/21 08:20 DC Ondansetron HCl (Zofran) 4 mg PRN Q8HRS PRN 03/31/21 19:30 04/01/21 19:29 DC Pantoprazole Sodium (Protonix) 40 mg DAILYAC 04/02/21 10:30 04/04/21 08:28 40 MG Propofol (Diprivan) 200 mg STK-MED ONCE 04/02/21 09:42 04/02/21 09:42 DC Ringer's Solution 1,000 ml @ 60 mls/hr [id number] 04/02/21 12:00 04/03/21 22:05 60 MLS/HR Sodium Chloride 1,000 ml @ 125 mls/hr 1X ONCE 03/31/21 19:30 04/01/21 03:29 DC 04/01/21 04:15 125 MLS/HR Tramadol HCl (Ultram) 50 mg PRN Q4HRS PRN 03/31/21 20:45 04/01/21 19:11 50 MG Lab Laboratory Tests Test 04/04/21 04:15 Sodium Level 138 mmol/L (136-145) Potassium Level 3.6 mmol/L (3.5-5.1) Chloride Level 104 mmol/L (98-107) Carbon Dioxide Level 25 mmol/L (21-32) Anion Gap 9 (6-14) Blood Urea Nitrogen 49 mg/dL (7-20) Creatinine 2.3 mg/dL (0.6-1.0) Estimated GFR (Cockcroft-Gault) 21.1 Glucose Level 81 mg/dL (70-99) Calcium Level 10.9 mg/dL (8.5-10.1) Results All relevant outside records, renal labs, imaging studies, telemetry/EKG's were reviewed. Justicifation of Admission Dx: Justifications for Admission: Justification of Admission Dx: N/A MARY ODEN MD Apr 04, 2021 09:41
--- NOTE | 2021-04-04 10:13 | PDOC ---
Date of Service: DATE: 04/04/21 TIME: 10:08 Subjective: Subjective: No swallowing issues, wants to go home. Would like IVF stopped because feet are swelling. Objective: Vital Signs: Vital Signs Date Time Temp Pulse Resp B/P (MAP) Pulse Ox O2 Delivery O2 Flow Rate FiO2 04/04/21 07:00 97.3 64 18 105/63 (77) 99 Room Air 97.3 04/03/21 23:27 2.0 Labs: Laboratory Tests Test 04/04/21 04:15 Sodium Level 138 mmol/L Potassium Level 3.6 mmol/L Chloride Level 104 mmol/L Carbon Dioxide Level 25 mmol/L Anion Gap 9 Blood Urea Nitrogen 49 mg/dL Creatinine 2.3 mg/dL Estimated GFR (Cockcroft-Gault) 21.1 Glucose Level 81 mg/dL Calcium Level 10.9 mg/dL PE: GEN: NAD - sitting on edge of bed - breakfast tray completely consumed except bread crusts LUNGS: diminished, NC HEART: RRR ABD: S/ND/NT NEURO/PSYCH: A & O 3 A/P: Hypoxia, lung mass - s/p bronch ACD, TENA (better), hypercalcemia (stable 10.9) Dysphagia - resolved H/o GERD and gastric sleeve COVID negative -- Continue PPI GI-abraham, DC per pulm and nephrology. Justicifation of Admission Dx: Justifications for Admission: Justification of Admission Dx: N/A SHAYY NICHOLSON Apr 04, 2021 10:13
[2021-04-04 11:00] VITALS: BP 127/64
--- NOTE | 2021-04-04 11:54 | SNU/HH DC ---
DISCHARGE WITH HOME HEALTH DISCHARGE INFORMATION: Discharge Date: Apr 04, 2021 Final Diagnosis: Problems Medical Problems: (1) Acute renal failure Status: Acute (2) Bronchogenic carcinoma Status: Acute (3) Cough Status: Acute (4) Fall from standing Status: Acute (5) Low back pain Status: Acute (6) Shortness of breath Status: Acute Condition on Discharge: Stable CODE STATUS: Code Status: Full HOME HEALTH: Face to Face: I certify this patient is under my care and that I, or a nurse practitioner or physician's energy assistant working with me, had a face to face encounter that meets the physician face to face encounter requirements with this patient on []. Medical Complications: HTN [facility] For: Assess Cardiopulm Status, Assess/Skilled Observatio, Medication Management, Pain Management RN For Eval/Treatment: Yes Physical Therapy For: Evalulation/Treatment Occupational Therapy For: Evaluation/Treatment Home Health Aide For: Self-care Pt Meets Homebound Status: Poor coordination w/ amb., Extreme weakness w/ amb., Limited distance walking POST DISCHARGE ORDERS: Activity Instructions for Disc: Activity as tolerated Weight Bearing Status after Di: Full weight bearing, As tolerated Bathing Instructions: Shower-keep dressing dry, No Tub Bath until see Wound/Incision Care: Ice to area for comfort, Do not change dressing FOLLOW-UP: Follow up with: Follow up with us after dc (in 4-6 weeks) or nephrology at [facility] . FU Labs Follow Up With: PCP within 2 weeks of discharge TREATMENT/EQUIPMENT ORDERS: Adaptive Equipment Issued: None, Front wheeled walker CERTIFICATION STATEMENT: Certification Statement: Certification Statement: Based on the above finding, I certify that this patient is confined to the home and needs intermittent prison care, physical therapy and/or speech therapy, or continues to need occupational therapy.~ This patient is under my care, and I have initiated the establishment of the plan of care.~ This patient will be followed by myself or a community physician who will periodically review the plan of care. Home Meds Active Scripts Tramadol Hcl (TRAMADOL HCL) 50 Mg Tablet, 50 MG PO PRN Q4HRS PRN for PAIN MDD 600 mg for 14 Days, #90 TAB Tramadol 50 mg Take one or two tablets every four hours, as needed for pain. Prov:KIKO JAMES MD 05/27/18 Reported Medications Cholecalciferol (Vitamin D3) (VITAMIN D) 2,000 Unit Capsule, 5000 UNIT PO DAILY for vitamin, CAP 05/09/18 Hydroxyzine Hcl (HYDROXYZINE HCL) 25 Mg Tablet, 25 MG PO QID for anxiety, TAB 05/09/18 Ferrous Sulfate (FERROUS SULFATE) 325 Mg Tablet, 1 TAB PO DAILY for 30 Days, #30 TAB 0 Refills 02/11/18 Pnv Cmb#95/Ferrous Fumarate/Fa ( TABLET) 1 Each Tablet, 1 EACH PO DAILY, TAB 01/14/18 Multivitamin (MULTIVITAMINS) 1 Each Tablet, 1 EACH PO DAILY, TAB 01/14/18 Levothyroxine Sodium (SYNTHROID) 50 Mcg Tablet, 50 MCG PO DAILYAC for THYROID SUPPLEMENT, #30 TAB 0 Refills 01/14/18 Discontinued Reported Medications Losartan/Hydrochlorothiazide (LOSARTAN-HCTZ 100-12.5 MG TAB) 1 Each Tablet, 1 EACH PO DAILY for HTN, TAB 05/24/18 Tramadol Hcl (TRAMADOL HCL) 50 Mg Tablet, 1-2 TAB PO Q4-6HRS PRN for PAIN, #80 TAB 0 Refills 02/11/18 Discontinued Scripts Meloxicam (MELOXICAM) 7.5 Mg Tablet, 7.5 MG PO BID for inflammation for 30 Days, #60 TAB Prov:KIKO JAMES MD 05/27/18 MARK GUADALUPE MD Apr 04, 2021 11:54
[2021-04-04] MEDS: cefTRIAXone IV Push 1 GM VIAL. IVP SCH (13:00)
--- NOTE | 2021-04-04 13:56 | NUR ---
Pt discharged to home with all belongings and discharge instructions were given
--- NOTE | 2021-04-04 17:09 | PATHOLOGY ---
Note [facility] Accession Number: [id number] TESTS RESULT FLAG UNITS REF RANGE LAB Clinician Provided Cytology Information No. of containers..01 Other (Miscellaneous) Source: TOURE NEEDLE L МАРИЯ DIAGNOSIS: TOURE NEEDLE L МАРИЯ INCONCLUSIVE. FEW SMALL CLUSTERS OF MILDLY ATYPICAL CELLS PRESENT BRONCHIAL EPITHELIAL CELLS, FEW SMALL SEGMENTS OF BRONCHIAL MUCOSA SHOWING CRUSH CHANGES, AND SMALL SEGMENT OF CARTILAGE PRESENT. THIS EXAMINATION INCLUDES EVALUATION OF A CELL BLOCK. Signed out by: Scott Dinh MD, Pathologist NPI- [id number] Performed by: Dhara Oconnor Civil Rights Investigator ([facility]) Gross description: 01 40ML, RED, CLOUDY /LCS 04/03/2021 1737 Local FLAG LEGEND: L-Low Normal,H-High Normal,LL-Alert Low,HH-Alert High <-Panic Low,>-Panic High,A-Abnormal,AA-Critical Abnormal Performed at: [facility] [address] [place] [address] Ralph Hatch MD, 02 [place] [facility] [address] [place] [address] Scott iDnh MD, Specimen Comment: A courtesy copy of this report has been sent to [phone]- Specimen Comment: [phone], Specimen Comment: Report sent to , DR GELLER / DR WILSON Performed at: 01 [facility] [address], [place], [place] [id number] MD Ralph Hatch MD Phone: [phone]
--- NOTE | 2021-04-04 17:09 | PATHOLOGY ---
Note [facility] Accession Number: [id number] TESTS RESULT FLAG UNITS REF RANGE LAB Clinician Provided Cytology Information No. of containers..01 Other (Miscellaneous) Source: BAL LEFT LUNG POOLED DIAGNOSIS: BAL LEFT LUNG POOLED NEGATIVE FOR MALIGNANT CELLS. FOCALLY REACTIVE BRONCHIAL EPITHELIAL CELLS AND PULMONARY MACROPHAGES PRESENT. SILVER METHENAMINE STAINED SMEARS ARE NEGATIVE FOR PNEUMOCYSTIS JIROVECI. NO FUNGAL ORGANISMS ARE PRESENT. Signed out by: 02 Scott Dinh MD, Pathologist NPI- [id number] Performed by: Dhara Oconnor [employer] ([facility]) Gross description: 01 7ML, RED, BLOODY /LCS 04/03/2021 1739 Local FLAG LEGEND: L-Low Normal,H-High Normal,LL-Alert Low,HH-Alert High <-Panic Low,>-Panic High,A-Abnormal,AA-Critical Abnormal Performed at: [place] [facility] [place] [address] [place] [address] Ralph Hatch MD, 02 [place] [facility] [address] [place] [address] Scott Dinh MD, Specimen Comment: A courtesy copy of this report has been sent to [phone], [phone]- Specimen Comment: [phone], Specimen Comment: Report sent to , DR GELLER / DR WILSON Performed at: 01 [facility] [address], [place], [place] [id number] MD Ralph Hatch MD Phone: [phone]
== END 2021-04-04 13:05 | disposition home or self-care (01) | DRG 180 ==
LOC: ER 15:06 → ED HOLD 16:54 → 4 NORTH 18:15
PROVIDERS: ADMIT Internal Medicine; ATTEND Internal Medicine
PROC: 0B9J8ZX Drainage of Left Lower Lung Lobe, Via Natural or Artificial Opening Endoscopic, Diagnostic (ICD-10-PCS; principal; 2021-03-31)
PROC: 0B9G8ZX Drainage of Left Upper Lung Lobe, Via Natural or Artificial Opening Endoscopic, Diagnostic (ICD-10-PCS; 2021-03-31)
DX: C34.90 Malignant neoplasm of unspecified part of unspecified bronchus or lung (principal); N17.0 Acute kidney failure with tubular necrosis; J96.01 Acute respiratory failure with hypoxia; E46 Unspecified protein-calorie malnutrition; E87.1 Hypo-osmolality and hyponatremia; J98.11 Atelectasis; E03.9 Hypothyroidism, unspecified; E83.52 Hypercalcemia; F41.9 Anxiety disorder, unspecified; G89.29 Other chronic pain; I10 Essential (primary) hypertension; M19.90 Unspecified osteoarthritis, unspecified site; R13.10 Dysphagia, unspecified; R31.0 Gross hematuria; Z20.822 Contact with and (suspected) exposure to COVID-19; Z82.0 Family history of epilepsy and other diseases of the nervous system; Z82.3 Family history of stroke; Z83.3 Family history of diabetes mellitus; Z87.01 Personal history of pneumonia (recurrent); Z87.442 Personal history of urinary calculi; Z90.49 Acquired absence of other specified parts of digestive tract; Z90.710 Acquired absence of both cervix and uterus; Z96.659 Presence of unspecified artificial knee joint; Z98.84 Bariatric surgery status; K21.9 Gastro-esophageal reflux disease without esophagitis; W18.39XA Other fall on same level, initial encounter; Y93.89 Activity, other specified; Y92.89 Other specified places as the place of occurrence of the external cause; Y99.8 Other external cause status; Z68.24 Body mass index [BMI] 24.0-24.9, adult
CPT/HCPCS: 31622; 36415; 70450; 71046; 72125; 72131; 76770; 80048; 80053; 80069; 81001; 82607; 83540; 83550; 83735; 84484; 85007; 85025; 85610; 85730; 87070; 87086; 87102; 87116; 87205; 87252; 87426; 87801; 88112; 88305; 88312; 93005; J0696; J2704; J3490; J7030; J7120; U0003; U0005; 97116-GP; 97530-GO; 97535-GO; 99285-25; G0378; J7613